=== PATIENT | male | born 1965 | race Caucasian/White ===

== ENCOUNTER 2018-03-12 16:56 | Inpatient (IN) ==
[2018-03-13] MEDS ORDERED: Dextrose 50% in Water 50 ML Vial IV.PUSH PRN (02:03)
--- NOTE | 2018-03-13 04:10 | P.HPIM ---
History of Present Illness Service: [facility] . Primary Care Physician: No Primary Care Physician Chief Complaint: Shortness of breath History of Present Illness: Mr. López is a 52-year-old male with a history of congestive heart failure, diabetes mellitus, hypertension, and pancreatitis who presented to the emergency room in [place] for evaluation of shortness of breath and lower extremity swelling. He also complained of chest pain. The patient was found to have congestive heart failure on chest x-ray with a BNP of 1700 and troponin I elevation of 0 of 0.48 and was admitted to [facility] for further evaluation. The patient is seen on the nursing unit. He reports a 3-4-day history of shortness of breath accompanied by chest pressure. He denies diaphoresis, nausea, palpitations, or radiating chest discomfort. He reports worsening of chest discomfort with cough. He has a congested cough noted during examination. He reports feeling extremely short of breath. He states the shortness of breath was relieved initially with IV Lasix but he feels that he is starting to get some increase in his breathing difficulty. Inpatient Certification: I certify that the inpatient services were ordered in accordance with Medicare regulations governing the order. This includes certification that hospital inpatient services are reasonable and necessary and in the case of services not specified as inpatient-only under 42 CFR 419.22(n), that they are appropriately provided as inpatient services in accordance to with the 2-midnight benchmark under 43 CFR 412.3(e) Estimated Total Length of Stay (Days): 3 Plans for Post Hospital Care: Home Review of Systems All other systems reviewed negative except as stated in HPI [facility] - History History Provided By: Patient - Medical History Medical History: Medical History (Last Reviewed 03/13/18 @ 05:17 by BRIAN Boykin) CHF (congestive heart failure) Diabetes Hypertension Pancreatitis - Surgical History Surgical History: Surgical History (Last Updated 03/13/18 @ 05:17 by BRIAN Boykin) History of ankle surgery History of cholecystectomy History of spinal fusion - Family History Family History: Family History (Last Updated 03/13/18 @ 05:17 by BRIAN Boykin) Father Family history of myocardial infarction - Social History I have reviewed the patient's Social History: Yes - Tobacco History Second Hand Smoke Exposure: Yes Tobacco Use In Past 30 Days: Yes Smoking Status: Current every day smoker Tobacco Type: Cigarettes - Alcohol History How Often Do You Have a Drink Containing Alcohol: Never - Substance Use History Substance History: No History of Abuse Medications and Allergies Active Medications: Active Medications Albuterol (Duoneb Neb (Prn)) 1 ampul NEB Q2HR NEB PRN PRN Reason: SHORTNESS OF BREATH/WHEEZING Aspirin (Aspirin Chew) 81 mg PO DAILY LISA Dextrose (D50w Vial) 50 ml IV.PUSH UNSCH PRN PRN Reason: PER HYPOGLYCEMIA PROTOCOL Duloxetine HCl (Cymbalta) 30 mg PO DAILY LISA Furosemide (Lasix Inj) 40 mg IV.PUSH TID LISA Glucagon (Glucagon Inj) 1 mg OTHER PRN PRN PRN Reason: for Hypoglycemia Protocol Insulin Aspart (Novolog Insulin Correctional Sugar Inj) 0 unit SQ ACHS LISA; Protocol Allergies Allergy/AdvReac Type Severity Reaction Status Date / Time morphine AdvReac Vomiting Verified 03/12/18 17:06 Home Medications Medication Instructions Recorded Confirmed Type duloxetine 30 mg PO DAILY 03/12/18 03/13/18 History furosemide 40 mg PO DAILY 03/12/18 03/13/18 History linaclotide [Linzess] 145 mcg PO DAILY 03/12/18 03/13/18 History lisinopril 20 mg PO DAILY 03/12/18 03/13/18 History Exam Vital signs: Vital Signs 03/13/18 01:00 Temperature 97.4 F L Pulse Rate 115 H Respiratory Rate 20 Blood Pressure 127/90 Pulse Oximetry 95 Intake & Output 03/12/18 03/12/18 03/13/18 06:59 18:59 06:59 Weight 73.4 kg Other: Weight On Admission 73.4 kg Narrative: GENERAL: This is a well-nourished, well-developed patient, in no apparent distress. SKIN: Darkly discolored lower extremities from tirado down consistent with venous vascular disease. Cool and dry. HEAD: Atraumatic. Normocephalic. EYES: No scleral icterus. No injection or drainage. ENT: Nose without bleeding, purulent drainage. NECK: Trachea midline. No JVD. CARDIOVASCULAR: Regular rate and rhythm without murmurs, gallops. RESPIRATORY: Inspiratory and expiratory rhonchi, bibasilar rales. GASTROINTESTINAL: Abdomen soft, non-tender, nondistended. No guarding. MUSCULOSKELETAL: Extremities without clubbing, cyanosis. No calf tenderness. 2 + pitting edema from just below knees to feet. NEUROLOGICAL: Awake and alert. Motor and sensory grossly within normal limits. Normal speech. . Caprini VTE Risk Assessment Caprini VTE Risk Assessment: Moderate/High Risk (score >= 2) Caprini Risk Assessment Model: Point Value = 1 Point Value = 2 Point Value = 3 Point Value = 5 Age 41-60 Minor surgery BMI > 25 kg/m2 Swollen legs Varicose veins or History of unexplained or recurrent spontaneous Oral contraceptives or hormone replacement Sepsis (< 1 month) Serious lung disease, including pneumonia (< 1 month) Abnormal pulmonary function Acute myocardial infarction Congestive heart failure (< 1 month) History of inflammatory bowel disease Medical patient at bed rest Age 61-74 Arthroscopic surgery Major open surgery (> 45 min) Laparoscopic surgery (> 45 min) Malignancy Confined to bed (> 72 hours) Immobilizing plaster cast Central venous access Age >= 75 History of VTE Family history of VTE Factor V Leiden Prothrombin [id number] Lupus anticoagulant Anticardiolipin antibodies Elevated serum homocysteine Heparin-induced thrombocytopenia Other congenital or acquired thrombophilia Stroke (< 1 month) Elective arthroplasty Hip, pelvis, or leg fracture Acute spinal cord injury (< 1 month) Prophylaxis Regimen: Total Risk Factor Score Risk Level Prophylaxis Regimen 0-1 Low Early ambulation 2 Moderate Order ONE of the following: *Sequential Compression Device (SCD) *Heparin 5000 units SQ BID 3-4 Higher Order ONE of the following medications: *Heparin 5000 units SQ TID *Enoxaparin/Lovenox 40 mg SQ daily (WT < 150 kg, CrCl > 30 mL/min) *Enoxaparin/Lovenox 30 mg SQ daily (WT < 150 kg, CrCl > 10-29 mL/min) *Enoxaparin/Lovenox 30 mg SQ BID (WT < 150 kg, CrCl > 30 mL/min) AND/OR *Sequential Compression Device (SCD) 5 or more Highest Order ONE of the following medications: *Heparin 5000 units SQ TID (Preferred with Epidurals) *Enoxaparin/Lovenox 40 mg SQ daily (WT < 150 kg, CrCl > 30 mL/min) *Enoxaparin/Lovenox 30 mg SQ daily (WT < 150 kg, CrCl > 10-29 mL/min) *Enoxaparin/Lovenox 30 mg SQ BID (WT < 150 kg, CrCl > 30 mL/min) AND *Sequential Compression Device (SCD) Assessment and Plan - Plan Mr. Lpóez is a 52-year-old male with a history of congestive heart failure, diabetes mellitus, hypertension, and pancreatitis who presented to the emergency room in [place] for evaluation of shortness of breath and lower extremity swelling. He also complained of chest pain. The patient was found to have congestive heart failure on chest x-ray with a BNP of 1700 and troponin I elevation of 0.48 and was admitted to [facility] for further evaluation. Acute congestive heart failure -Initial troponin elevation of 0.48 -the next 2 readings were flat -Lasix 40 mg IV 3 times daily -Monitor intake and output -Consult to cardiology-appreciate assistance -monitor strict intake and output -fluid restriction -2 L every 24 hours -2D echocardiogram to evaluate cardiac structure and function Suspect undiagnosed COPD secondary to long history of tobacco abuse -Advised to stop smoking -Duo nebulizers every 2 hours as needed shortness of breath/wheezing -Monitor pulse oximetry -Supplemental oxygen as needed Type 2 Diabetes Mellitus - Accu-Cheks before meals and at bedtime with low-dose NovoLog sliding scale coverage - PRN Hypoglycemia protocol - Monitor trends and blood glucose readings and adjust treatments as indicated Restart home medications when medication reconciliation is completed DVT prophylaxis -Heparin 5000 units subcu every 8 hours Discussed Condition With: Patient, RN, and Dr. Tran . H&P: Quality - VTE Deep Vein Thrombosis/Pulmonary Embolism Present on Admission: No
[2018-03-13] MEDS: Heparin - SQ 10,000 UNITS/ML Vial SQ SCH ×3 (06:06→21:00)
[2018-03-13 08:53] LABS: Anion Gap 7 meq/L (5-15); Blood Urea Nitrogen 17 mg/dL (7-18); Calcium 8.9 mg/dL (8.5-10.1); Carbon Dioxide 25.6 meq/L (21.0-32.0); Chloride 101 meq/L (98-107); Glomerular Filtration Rate Greater Than 89 mL/min (>89); Glucose,Random 395 mg/dL (74-106); Magnesium 1.6 mg/dL (1.5-2.5); Sodium 134 meq/L (136-145)
[2018-03-13] MEDS: Insulin NovoLOG Aspart Correctional Sugar Inj SQ SCH ×4 (08:53→20:56)
[2018-03-13 08:56] LABS: Troponin I 0.52 ng/mL (0.02-0.05)
[2018-03-13] MEDS ORDERED: Acetaminophen 325 MG Tablet PO PRN (09:26)
--- NOTE | 2018-03-13 09:30 | P.PN ---
Subjective Interval history: Follow-up acute systolic CHF of unknown type March 13, 2018-patient seen and examined, still complains of shortness of breath, denies any heart palpitation. Physical Exam Vital signs: Vital Signs 03/13/18 01:00 03/13/18 01:30 03/13/18 04:00 Temperature 97.4 F L 96.7 F L Pulse Rate 115 H 111 H 110 H Respiratory Rate 20 20 Blood Pressure 127/90 124/84 Pulse Oximetry 95 94 L 03/13/18 04:29 Temperature Pulse Rate 111 H Respiratory Rate 27 H Blood Pressure Pulse Oximetry Intake & Output 03/12/18 03/13/18 03/13/18 18:59 06:59 18:59 Intake Total 200 / 200 Output Total 0 / 0 Balance 200 / 200 Weight 73.1 kg Intake: Oral 200 / 200 Output: Urine 0 / 0 Other: # Voids 0 # Bowel Movements 0 Weight On Admission 73.4 kg Narrative: GENERAL: This is a well-nourished, well-developed patient, in no apparent distress. SKIN: Darkly discolored lower extremities from tirado down consistent with venous vascular disease. Cool and dry. HEAD: Atraumatic. Normocephalic. EYES: No scleral icterus. No injection or drainage. ENT: Nose without bleeding, purulent drainage. NECK: Trachea midline. No JVD. CARDIOVASCULAR: Regular rate and rhythm without murmurs, gallops. RESPIRATORY: Inspiratory and expiratory rhonchi, bibasilar rales. GASTROINTESTINAL: Abdomen soft, non-tender, nondistended. No guarding. MUSCULOSKELETAL: Extremities without clubbing, cyanosis. No calf tenderness. 2 + pitting edema from just below knees to feet. NEUROLOGICAL: Awake and alert. Motor and sensory grossly within normal limits. Normal speech. . Results - Labs CBC & Chem 7: 03/13/18 07:57 Laboratory Results - last 24 hr 03/13/18 03/13/18 07:57 08:04 Sodium 134 L Potassium 4.0 Chloride 101 Carbon Dioxide 25.6 Anion Gap 7 BUN 17 Creatinine 0.84 Estimated GFR Greater than 89 POC Glucose 419 H Random Glucose 395 H Calcium 8.9 Magnesium 1.6 Troponin I 0.52 H - Procedures None Assessment and Plan - Plan 52-year-old man with Acute congestive heart failure -Initial troponin elevation of 0.48 -the next 2 readings were flat -Lasix 40 mg IV 3 times daily -Monitor intake and output -Consult to cardiology-appreciate assistance -2D echocardiogram to evaluate cardiac structure and function -Resume GIGI inhibitor Suspect undiagnosed COPD secondary to long history of tobacco abuse -Tobacco cessation advised -Duo nebulizers every 2 hours as needed shortness of breath/wheezing -Monitor pulse oximetry -Supplemental oxygen as needed Type 2 Diabetes Mellitus - Accu-Cheks before meals and at bedtime with low-dose NovoLog sliding scale coverage - PRN Hypoglycemia protocol - Monitor trends and blood glucose readings and adjust treatments as indicated Restart home medications when medication reconciliation is completed DVT prophylaxis -Heparin 5000 units subcu every 8 hours
--- NOTE | 2018-03-13 13:18 | ECHRPT ---
Indication: cva/tia CONCLUSIONS Severely dilated left ventricle. The left ventricular systolic function is severely reduced with an estimated ejection fraction less than 20%. The right ventricular systoilc function is moderately decreased. Mild mitral valve regurgitation. There is mild tricuspid valve regurgitation. There is estimated moderate pulmonary hypertension present (range 50-60 mmHg). Large bilateral pleural effusions. BP: / HR: Rhythm: MEASUREMENTS (Male / Female) Normal Values Technical Quality: 2D ECHO LV Diastolic Diameter PLAX 6.3 cm 4.2 - 5.9 / 3.9 - 5.3 cm LV Systolic Diameter PLAX 5.8 cm IVS Diastolic Thickness 0.9 cm 0.6 - 1.0 / 0.6 - 0.9 cm LVPW Diastolic Thickness 0.9 cm 0.6 - 1.0 / 0.6 - 0.9 cm LV Relative Wall Thickness 0.3 RV Internal Dim ED PLAX 3.5 cm LVOT Diameter 1.5 cm Aortic Root Diameter 2.3 cm LA Systolic Diameter LX 4.6 cm 3.0 - 4.0 / 2.7 - 3.8 cm LV Ejection Fraction MOD BP 29.1 % >= 55 % LV Ejection Fraction MOD 4C 32.8 % LV Ejection Fraction 4C AL 34.8 % LV Ejection Fraction MOD 2C 20.2 % LV Ejection Fraction 2C AL 19.7 % M-MODE Aortic Root Diameter MM 3.0 cm LA Systolic Diameter MM 5.6 cm LA Ao Ratio MM 1.9 AV Cusp Separation MM 1.0 cm DOPPLER AV Peak Velocity 103.0 cm/s AV Peak Gradient 4.2 mmHg LVOT Peak Velocity 68.1 cm/s LVOT Peak Gradient 1.9 mmHg AV Area Cont Eq pk 1.2 cm MV Peak Velocity 153.0 cm/s MV Peak Gradient 9.4 mmHg MV Mean Velocity 82.2 cm/s MV Mean Gradient 4.0 mmHg Mitral E Point Velocity 99.2 cm/s LV E' Lateral Velocity 6.0 cm/s Mitral E to LV E' Lateral Ratio 16.5 LV E' Septal Velocity 3.4 cm/s Mitral E to LV E' Septal Ratio 28.9 TR Peak Velocity 351.0 cm/s TR Peak Gradient 49.3 mmHg Right Atrial Pressure 10.0 mmHg Pulmonary Artery Systolic Pressu 59.3 mmHg Right Ventricular Systolic Press 59.3 mmHg PV Peak Velocity 77.6 cm/s PV Peak Gradient 2.4 mmHg FINDINGS LEFT VENTRICLE Severely dilated left ventricle. Wall thickness is normal. The left ventricular systolic function is severely reduced with an estimated ejection fraction less than 20%. RIGHT VENTRICLE The right ventricular size is normal. The right ventricular systoilc function is moderately decreased. LEFT ATRIUM The left atrial size is mildly dilated. RIGHT ATRIUM The right atrial size is mildly dilated. ATRIAL SEPTUM Normal atrial septal thickness AORTA The aortic root and proximal ascending aorta are normal in size on limited imaging. MITRAL VALVE Structurally normal mitral valve. Mild mitral valve regurgitation. No mitral valve stenosis. AORTIC VALVE Cannot rule out a bicuspid aortic valve or trileaflet valve with partially fused commissure. No aortic valve regurgitation. No aortic valve stenosis. TRICUSPID VALVE Structurally normal tricuspid valve. There is mild tricuspid valve regurgitation. No tricuspid valve stenosis. There is estimated moderate pulmonary hypertension present (range 50-60 mmHg). PULMONARY VALVE No pulmonary valve regurgitation or stenosis. VESSELS The inferior vena cava is normal in size. PERICARDIUM Large bilateral pleural effusions Fish Rg DO (Electronically Signed) Final Date:13 March 2018 13:17
--- NOTE | 2018-03-13 15:18 | P.CONCA ---
History of Present Illness Service: cardiology Consult date: 03/13/18 Requesting Physician: Marcus Sosa Reason for Consult: chf Primary Care Provider: No Primary Care Physician Chief Complaint: Shortness of breath History of Present Illness: 82-year-old gentleman with a history of CHF, DM, HTN, pancreatitis who presented to [place] [facility] with dyspnea and lower extremity edema. He also complained of chest pain. Chest x-ray revealed large left-sided pleural effusion and mild pulmonary vascular congestion. BNP elevated 1700 and troponin I elevated 0.48, 0.52, 0.54. EKG reveals sinus tachycardia 115 bpm, LAE, anterior septal [place] with nonspecific T wave changes. No prior EKG was available for comparison. Echocardiogram completed 03/13/18 revealed severely dilated LV with reduced systolic function, EF less than 20%, mild MR, mild TR, estimated PAP 59 mmHg, large bilateral pleural effusions. Patient was started on furosemide 40 mg IV 3 times daily with reasonable urine output however continues to be dyspneic. I/O and daily weight has been not accurately monitored. Creatinine/BUN remains unchanged and normal. Patient currently has continued dyspnea and mild orthopnea with lower extremity edema. No other complaints. Denies any chest pain. No palpitations or syncope. Review of Systems All other systems reviewed negative except as stated in HPI [facility] - History History Provided By: Patient - Medical History Medical History: Medical History (Last Reviewed 03/13/18 @ 05:17 by BRIAN Bokyin) CHF (congestive heart failure) Diabetes Hypertension Pancreatitis - Surgical History Surgical History: Surgical History (Last Updated 03/13/18 @ 05:17 by BRIAN Boykin) History of ankle surgery History of cholecystectomy History of spinal fusion - Family History Family History: Family History (Last Updated 03/13/18 @ 05:17 by BRIAN Boykin) Father Family history of myocardial infarction - Tobacco History Second Hand Smoke Exposure: Yes Tobacco Use In Past 30 Days: Yes Smoking Status: Current every day smoker Tobacco Type: Cigarettes - Alcohol History How Often Do You Have a Drink Containing Alcohol: Never - Substance Use History Substance History: No History of Abuse - Immunization History Tetanus Immunization: Unsure Medications and Allergies Active Medications: Active Medications Acetaminophen (Tylenol) 650 mg PO Q4H PRN PRN Reason: Temp > 100.4 Al Hydroxide/Mg Hydroxide (Milk Of Magnesia Liq) 30 ml PO DAILY PRN PRN Reason: SEVERE CONSITIPATION Albuterol (Duoneb Neb (Prn)) 1 ampul NEB Q2HR NEB PRN PRN Reason: SHORTNESS OF BREATH/WHEEZING Last Admin: 03/13/18 12:37 Dose: 1 ampul Aspirin (Aspirin Chew) 81 mg PO DAILY [facility] Last Admin: 03/13/18 08:52 Dose: 81 mg Carvedilol (Coreg) 3.125 mg PO BID [facility] Dextrose (D50w Vial) 50 ml IV.PUSH UNSCH PRN PRN Reason: PER HYPOGLYCEMIA PROTOCOL Duloxetine HCl (Cymbalta) 30 mg PO DAILY [facility] Last Admin: 03/13/18 08:53 Dose: 30 mg Furosemide (Lasix Inj) 40 mg IV.PUSH TID [facility] Last Admin: 03/13/18 12:26 Dose: 40 mg Glucagon (Glucagon Inj) 1 mg OTHER PRN PRN PRN Reason: for Hypoglycemia Protocol Heparin Sodium (Porcine) (Heparin Inj) 5,000 units SQ Q8HR [facility] Last Admin: 03/13/18 06:06 Dose: Not Given Insulin Aspart (Novolog Insulin Correctional Sugar Inj) 0 unit SQ ACHS [facility]; Protocol Last Admin: 03/13/18 12:27 Dose: 3 unit Lisinopril (Prinivil) 10 mg PO DAILY [facility] Metolazone (Zaroxolyn) 5 mg PO DAILY [facility] Ondansetron HCl (Zofran Inj) 4 mg IV.PUSH Q6H PRN PRN Reason: NAUSEA Potassium Chloride (K-Dur) 20 meq PO BID [facility] Spironolactone (Aldactone) 25 mg PO DAILY [facility] Allergies Allergy/AdvReac Type Severity Reaction Status Date / Time morphine AdvReac Vomiting Verified 03/12/18 17:06 Home Medications Medication Instructions Recorded Confirmed Type duloxetine 30 mg PO DAILY 03/12/18 03/13/18 History furosemide 40 mg PO DAILY 03/12/18 03/13/18 History linaclotide [Linzess] 145 mcg PO DAILY 03/12/18 03/13/18 History lisinopril 20 mg PO DAILY 03/12/18 03/13/18 History Exam Vital signs: Vital Signs 03/13/18 01:00 03/13/18 01:30 03/13/18 04:00 Temperature 97.4 F L 96.7 F L Pulse Rate 115 H 111 H 110 H Respiratory Rate 20 20 Blood Pressure 127/90 124/84 Pulse Oximetry 95 94 L 03/13/18 04:29 03/13/18 08:00 03/13/18 12:00 Temperature 98.0 F 97.4 F L Pulse Rate 111 H 118 H 120 H Respiratory Rate 27 H 20 20 Blood Pressure 133/87 121/93 H Pulse Oximetry 96 95 03/13/18 12:35 Temperature Pulse Rate 120 H Respiratory Rate 20 Blood Pressure Pulse Oximetry Intake & Output 03/12/18 03/13/18 03/13/18 18:59 06:59 18:59 Intake Total 200 / 200 Output Total 0 / 0 Balance 200 / 200 Weight 73.1 kg Intake: Oral 200 / 200 Output: Urine 0 / 0 Other: # Voids 0 Date of Last Bowel Movement 03/12/18 # Bowel Movements 0 Weight On Admission 73.4 kg Narrative: GENERAL: Speaking full sentences. No acute distress. SKIN: Warm and dry. HEAD: Atraumatic. Normocephalic. NECK: Trachea midline. No JVD. CARDIOVASCULAR: Tachycardic with regular rhythm, no significant murmurs. RESPIRATORY: No accessory muscle use. Decreased breath sounds at the bases. Faint rales. GASTROINTESTINAL: Abdomen soft, non-tender, nondistended. MUSCULOSKELETAL: Extremities without clubbing, cyanosis, or edema. No obvious deformities. NEUROLOGICAL: Awake and alert. No obvious cranial nerve deficits. Motor grossly within normal limits. Five out of 5 muscle strength in the arms and legs. Normal speech. PSYCHIATRIC: Appropriate mood and affect; insight and judgment normal. Results 03/13/18 07:57 Cardiac Enzymes 03/13/18 03/13/18 Range/Units 07:57 12:31 Troponin I 0.52 H 0.54 H (0.02-0.05) ng/mL Comprehensive Metabolic Panel 03/13/18 Range/Units 07:57 Sodium 134 L (136-145) meq/L Potassium 4.0 (3.5-5.1) meq/L Chloride 101 (98-107) meq/L Carbon Dioxide 25.6 (21.0-32.0) meq/L BUN 17 (7-18) mg/dL Creatinine 0.84 (0.60-1.30) mg/dL Calcium 8.9 (8.5-10.1) mg/dL Intake and Output 03/13/18 03/13/18 03/13/18 06:59 14:59 22:59 Intake Total 200 / 200 Output Total 0 / 0 Balance 200 / 200 Intake: Oral 200 / 200 Output: Urine 0 / 0 Other: # Voids 0 Date of Last Bowel Movement 03/12/18 # Bowel Movements 0 Weight 73.1 kg Weight On Admission 73.4 kg Assessment and Plan - Plan Assessment: Acute decompensated congestive heart failure, systolic Severe cardiomyopathy, LVEF< 20% Atypical chest pain with mild flat troponin elevation in the setting of ADHF. Hypertension, currently normotensive Diabetes Pulmonary hypertension with PAP 59 mmHg by echocardiogram, suspect pulmonary venous hypertension in the setting of ADHF Recommendations: -Continue furosemide 40 mg 3 times daily -Start metolazone 5 mg daily -Start spironolactone 25 mg daily with holding parameters -Start carvedilol 3.125 mg twice daily with holding parameters -Reduce lisinopril to 10 mg daily with holding parameters -Monitor CR/K+ on current regimen. Maintain K+ greater than 4.0 -Monitor on telemetry -He will require an evaluation for coronary ischemia with Lexiscan stress test versus coronary angiography prior to discharge. May consider Lexiscan tomorrow if orthopnea is improved. -Repeat chest x-ray tomorrow and if continued large bilateral pleural effusions , would consider thoracentesis. -We will require outpatient up titration of cardiac medications for OMT of underlying cardiomyopathy as well as repeat echocardiogram in 3-4 months for consideration of AICD placement for primary prevention of SCD if EF remains less than 35%. -May benefit from LifeVest placement prior to discharge. Consult case management to assist. We will continue to follow with you.
[2018-03-13] MEDS: MethylPREDNISolone Sod Succinate Inj 40 MG/ML Vial IV.PUSH SCH ×2 (15:50→21:00)
--- NOTE | 2018-03-13 16:25 | CT ---
EXAM DATE: 03/13/2018 4:18 PM EST AGE/SEX: 52 years / Male INDICATIONS: Dyspnea and chest pain. CLINICAL DATA: This is the patient's initial encounter. Patient reports that signs and symptoms have been present for 1 day and indicates a pain score of 5/10. MEDICAL/SURGICAL HISTORY: Congestive heart failure. Hypertension. Pancreatitis. Diabetes Cholec ystectomy. Cervical spine fusion. RADIATION DOSE: 10.59 CTDI (mGy) COMPARISON: [facility], CHEST 2V PA&LAT, 03/12/2018. . TECHNIQUE: Volumetric scanning was performed using a multi-row detector CT scanner during bolus infu zina of 75 ml Omnipaque 350 (iohexol) nonionic water-soluble contrast as a single exam dose. The erika a was post processed with a variety of visualization algorithms including full volume maximum intensi ty projection and sliding thin slab reformation. Using automated exposure control and adjustment of t he mA and/or kV according to patient size, radiation dose was kept as low as reasonably achievable to obtain optimal diagnostic quality images. DICOM format image data is available electronically for r eview and comparison. FINDINGS: Pulmonary Arteries: No filling defects are seen in the pulmonary arteries out to the subsegmental ve ssels. The left and right pulmonary arteries are normal in diameter. Lung: There is underlying emphysema. Mild hazy airspace disease is noted in the dependent portions o f both lung bases. Effusion: There are bilateral [id number] pleural effusions left greater than right. These ext end to the lung apices.. Mediastinum: No evidence of mediastinal or hilar adenopathy. There is mild cardiomegaly. Other: The axilla is unremarkable. CONCLUSION: 1. No evidence of pulmonary emboli. 2. Cardiomegaly, bilateral pleural effusions and mild hazy airspace opacity in the dependent portion s along bases. The findings most characteristic of mild congestive heart failure. Electronically signed by: Bautista Shabazz MD Board Certified Radiologist 03/13/2018 4:23 PM EST
[2018-03-13] MEDS: metOLazone 5 MG Tablet PO SCH (17:38)
[2018-03-13] MEDS: Spironolactone 25 MG Tablet PO SCH (17:38)
[2018-03-13] MEDS: Budesonide-Formoterol 160/4.5 MCG 6 GM Inhaler INH SCH (20:57)
[2018-03-14] MEDS: MethylPREDNISolone Sod Succinate Inj 40 MG/ML Vial IV.PUSH SCH (06:24)
[2018-03-14] MEDS: Heparin - SQ 10,000 UNITS/ML Vial SQ SCH (06:24)
[2018-03-14 07:04] LABS: Albumin 2.8 g/dL (3.4-5.0); Anion Gap 10 meq/L (5-15); Aspartate Aminotransferase 20 U/L (15-37); Blood Urea Nitrogen 22 mg/dL (7-18); Calcium 9.7 mg/dL (8.5-10.1); Chloride 95 meq/L (98-107); Glomerular Filtration Rate Greater Than 89 mL/min (>89); Glucose,Random 383 mg/dL (74-106); Potassium 3.8 meq/L (3.5-5.1); Sodium 134 meq/L (136-145)
[2018-03-14 07:06] LABS: Alanine Aminotransferase 31 U/L (12-78)
[2018-03-14 07:08] LABS: Alkaline Phosphatase 99 U/L (45-117)
--- NOTE | 2018-03-14 08:48 | P.PNCA ---
Subjective Interval history: Patient seen and examined. He is emotional and teary eyed and wants to leave. He 'll stay. Doesn't like the food. No chest pain. Still with some dyspnea but improving. LE edema improving. I/O net -2200cc if accurate. Weight is down. CTA chest neg for PE 03/13. tele - ST 100s-130s. I suspect higher HRs with B2 agonists. Medications and Allergies Active Medications: Active Medications Acetaminophen (Tylenol) 650 mg PO Q4H PRN PRN Reason: Temp > 100.4 Al Hydroxide/Mg Hydroxide (Milk Of Karin Gage) 30 ml PO DAILY PRN PRN Reason: SEVERE CONSITIPATION Albuterol (Duoneb Neb (Prn)) 1 ampul NEB Q2HR NEB PRN PRN Reason: SHORTNESS OF BREATH/WHEEZING Last Admin: 03/13/18 20:34 Dose: 1 ampul Aspirin (Aspirin Chew) 81 mg PO DAILY [facility] Last Admin: 03/13/18 08:52 Dose: 81 mg Budesonide/Formoterol Fumarate (Symbicort 160/4.5 Mcg Inh) 2 puff INH BID [facility] Last Admin: 03/13/18 20:57 Dose: Not Given Carvedilol (Coreg) 12.5 mg PO BID [facility] Dextrose (D50w Vial) 50 ml IV.PUSH UNSCH PRN PRN Reason: PER HYPOGLYCEMIA PROTOCOL Duloxetine HCl (Cymbalta) 30 mg PO DAILY [facility] Last Admin: 03/13/18 08:53 Dose: 30 mg Furosemide (Lasix Inj) 40 mg IV.PUSH TID [facility] Last Admin: 03/13/18 17:39 Dose: 40 mg Glucagon (Glucagon Inj) 1 mg OTHER PRN PRN PRN Reason: for Hypoglycemia Protocol Heparin Sodium (Porcine) (Heparin Inj) 5,000 units SQ Q8HR [facility] Last Admin: 03/14/18 06:24 Dose: Not Given Insulin Aspart (Novolog Insulin Correctional Sugar Inj) 0 unit SQ [facility]; Protocol Last Admin: 03/13/18 20:56 Dose: 9 unit Lisinopril (Prinivil) 10 mg PO DAILY [facility] Methylprednisolone Sodium Succinate (Solumedrol Inj) 40 mg IV.PUSH Q8HR [facility] Last Admin: 03/14/18 06:24 Dose: 40 mg Metolazone (Zaroxolyn) 5 mg PO DAILY [facility] Last Admin: 03/13/18 17:38 Dose: 5 mg Ondansetron HCl (Zofran Inj) 4 mg IV.PUSH Q6H PRN PRN Reason: NAUSEA Potassium Chloride (K-Dur) 20 meq PO TID [facility] Spironolactone (Aldactone) 25 mg PO DAILY [facility] Last Admin: 03/13/18 17:38 Dose: 25 mg Tiotropium Adah (Spiriva 18 Mcg Inh) 18 mcg INH DAILY [facility] Allergies Allergy/AdvReac Type Severity Reaction Status Date / Time morphine AdvReac Vomiting Verified 03/12/18 17:06 Home Medications Medication Instructions Recorded Confirmed Type duloxetine 30 mg PO DAILY 03/12/18 03/13/18 History furosemide 40 mg PO DAILY 03/12/18 03/13/18 History linaclotide [Linzess] 145 mcg PO DAILY 03/12/18 03/13/18 History lisinopril 20 mg PO DAILY 03/12/18 03/13/18 History Physical Exam Vital signs: Vital Signs 03/13/18 12:00 03/13/18 12:35 03/13/18 16:47 Temperature 97.4 F L Pulse Rate 120 H 120 H 117 H Respiratory Rate 20 20 20 Blood Pressure 121/93 H Pulse Oximetry 95 03/13/18 20:00 03/13/18 20:35 03/14/18 00:00 Temperature 98.5 F 98.3 F Pulse Rate 114 H 118 H 106 H Respiratory Rate 20 18 18 Blood Pressure 120/72 123/82 Pulse Oximetry 90 L 91 L Intake & Output 03/13/18 03/14/18 03/14/18 18:59 06:59 18:59 Intake Total 500 / 500 240 / 240 Output Total 400 / 400 2875 / 2875 Balance 100 / 100 -2635 / -2635 Weight 72.8 kg Intake: Oral 500 / 500 240 / 240 Output: Urine 400 / 400 2875 / 2875 Other: Date of Last Bowel Movement 03/12/18 03/12/18 # Bowel Movements 3 Narrative: GENERAL: Speaking full sentences. No acute distress. SKIN: Warm and dry. HEAD: Atraumatic. Normocephalic. NECK: Trachea midline. No JVD. CARDIOVASCULAR: Tachycardic with regular rhythm, no significant murmurs. RESPIRATORY: No accessory muscle use. Decreased breath sounds at the bases. No wheeze, rales or rhonci. GASTROINTESTINAL: Abdomen soft, non-tender, nondistended. MUSCULOSKELETAL: Extremities without clubbing, cyanosis, or edema. No obvious deformities. NEUROLOGICAL: Awake and alert. No obvious cranial nerve deficits. Motor grossly within normal limits. Five out of 5 muscle strength in the arms and legs. Normal speech. PSYCHIATRIC: Appropriate mood and affect; insight and judgment normal. Results 03/14/18 05:51 Cardiac Enzymes 03/13/18 03/13/18 03/14/18 Range/Units 07:57 12:31 05:51 AST 20 (15-37) U/L Troponin I 0.52 H 0.54 H (0.02-0.05) ng/mL Comprehensive Metabolic Panel 03/13/18 03/14/18 Range/Units 07:57 05:51 Sodium 134 L 134 L (136-145) meq/L Potassium 4.0 3.8 (3.5-5.1) meq/L Chloride 101 95 L (98-107) meq/L Carbon Dioxide 25.6 29.0 (21.0-32.0) meq/L BUN 17 22 H (7-18) mg/dL Creatinine 0.84 0.88 (0.60-1.30) mg/dL Calcium 8.9 9.7 D (8.5-10.1) mg/dL AST 20 (15-37) U/L ALT 31 (12-78) U/L Alkaline Phosphatase 99 (45-117) U/L Total Protein 7.0 (6.4-8.2) g/dL Albumin 2.8 L (3.4-5.0) g/dL Intake and Output 03/13/18 03/14/18 03/14/18 22:59 06:59 14:59 Intake Total 500 / 500 240 / 240 Output Total 400 / 400 2875 / 2875 Balance 100 / 100 -2635 / -2635 Intake: Oral 500 / 500 240 / 240 Output: Urine 400 / 400 2875 / 2875 Other: Date of Last Bowel Movement 03/12/18 # Bowel Movements 3 Weight 72.8 kg - Imaging and Cardiology Imaging: Impressions Chest CTA 03/13/18 00:00 CONCLUSION: 1. No evidence of pulmonary emboli. 2. Cardiomegaly, bilateral pleural effusions and mild hazy airspace opacity in the dependent portions along bases. The findings most characteristic of mild congestive heart failure. Assessment and Plan - Plan Assessment: Acute decompensated congestive heart failure, systolic Severe cardiomyopathy, LVEF< 20% Atypical chest pain with mild flat troponin elevation in the setting of ADHF. COPD with acute exacerbation Hypoxic respiratory failure Hypertension, currently normotensive Diabetes Pulmonary hypertension with PAP 59 mmHg by echocardiogram, suspect pulmonary venous hypertension in the setting of ADHF Recommendations: -Continue furosemide 40 mg 3 times daily -continue metolazone 5 mg daily -continue spironolactone 25 mg daily with holding parameters -Increase carvedilol to 12.5mg twice daily with holding parameters. He seems to be tolerating with wheezing resolved. -Continue reduced lisinopril to 10 mg daily with holding parameters -Monitor CR/K+ on current regimen. Maintain K+ greater than 4.0, will increase KCL to 20meq tid today -Monitor on telemetry -He will require an evaluation for coronary ischemia with Lexiscan stress test versus coronary angiography prior to discharge. Following d/w patient, Lexiscan today. -Repeat chest x-ray today and if continued large bilateral pleural effusions, may consider thoracentesis. -He will require outpatient up titration of cardiac medications for OMT of underlying cardiomyopathy as well as repeat echocardiogram in 3-4 months for consideration of AICD placement for primary prevention of SCD if EF remains less than 35%. -May benefit from LifeVest placement prior to discharge. Consult case management to assist. We will continue to follow with you.
[2018-03-14] MEDS: metOLazone 5 MG Tablet PO SCH (08:51)
[2018-03-14] MEDS: Lisinopril 10 MG Tablet PO SCH (08:52)
[2018-03-14] MEDS: Insulin NovoLOG Aspart Correctional Sugar Inj SQ SCH ×4 (08:52→21:50)
[2018-03-14] MEDS: Spironolactone 25 MG Tablet PO SCH (08:53)
[2018-03-14] MEDS: Budesonide-Formoterol 160/4.5 MCG 6 GM Inhaler INH SCH ×2 (08:54→21:55)
[2018-03-14] MEDS: Tiotropium Bromide 18 MCG/ACT Inhaler INH SCH (08:54)
[2018-03-14] MEDS ORDERED: dilTIAZem 60 MG Tablet PO SCH (09:00)
[2018-03-14] MEDS ORDERED: Lisinopril 20 MG Tablet PO SCH (09:00)
[2018-03-14] MEDS: Carvedilol 12.5 MG Tablet PO SCH ×2 (09:04→21:55)
--- NOTE | 2018-03-14 10:21 | XR ---
EXAM DATE: 03/14/2018 10:11 AM EST AGE/SEX: 52 years / Male INDICATIONS: . Short of breath, chest pain. CLINICAL DATA: This is the patient's subsequent encounter. Patient reports that signs and symptoms h ave been present for 1 week and indicates a pain score of 2/10. MEDICAL/SURGICAL HISTORY: Congestive heart failure. Hypertension. Diabetes mellitus type II. Pancreatitis. Cholecystectomy. Cervical spine fusion. COMPARISON: [facility], CHEST 2V PA&LAT, 03/12/2018. . FINDINGS: The heart is enlarged. Mild interstitial prominence is evident. There are new consolidative changes i n the left base. Mild degenerative changes about both shoulders. CONCLUSION: New consolidative changes left base with mild interstitial edema. Electronically signed by: Jai Huang MD Board Certified Radiologist 03/14/2018 10:20 AM EST
--- NOTE | 2018-03-14 11:21 | P.PN ---
Subjective Interval history: Follow-up acute systolic CHF March 13, 2018-patient seen and examined, still complains of shortness of breath, denies any heart palpitation. March 14, 2018-patient seen and examined, reports significant improvement of shortness of breath. Currently n.p.o. pending left heart catheterization. Labile blood glucose Physical Exam Vital signs: Vital Signs 03/13/18 12:00 03/13/18 12:35 03/13/18 16:47 Temperature 97.4 F L Pulse Rate 120 H 120 H 117 H Respiratory Rate 20 20 20 Blood Pressure 121/93 H Pulse Oximetry 95 03/13/18 20:00 03/13/18 20:35 03/14/18 00:00 Temperature 98.5 F 98.3 F Pulse Rate 114 H 118 H 106 H Respiratory Rate 20 18 18 Blood Pressure 120/72 123/82 Pulse Oximetry 90 L 91 L 03/14/18 08:00 Temperature 97.6 F Pulse Rate 104 H Respiratory Rate 18 Blood Pressure 116/84 Pulse Oximetry 97 Intake & Output 03/13/18 03/14/18 03/14/18 18:59 06:59 18:59 Intake Total 500 / 500 240 / 240 Output Total 400 / 400 2875 / 2875 Balance 100 / 100 -2635 / -2635 Weight 72.8 kg Intake: Oral 500 / 500 240 / 240 Output: Urine 400 / 400 2875 / 2875 Other: Date of Last Bowel Movement 03/12/18 03/12/18 # Bowel Movements 3 Narrative: GENERAL: NAD SKIN: Warm and dry. HEAD: Atraumatic. Normocephalic. EYES: Pupils equal and round. No scleral icterus. No injection or drainage. ENT: No nasal bleeding or discharge. Mucous membranes pink and moist. NECK: Trachea midline. No JVD. CARDIOVASCULAR: Regular rate and rhythm. RESPIRATORY: No accessory muscle use. Clear to auscultation. Breath sounds equal bilaterally. GASTROINTESTINAL: Abdomen soft, non-tender, nondistended. Hepatic and splenic margins not palpable. MUSCULOSKELETAL: Extremities without clubbing, cyanosis.+1 edema BLE. No obvious deformities. NEUROLOGICAL: Awake and alert. No obvious cranial nerve deficits. Motor grossly within normal limits. Five out of 5 muscle strength in the arms and legs. Normal speech. PSYCHIATRIC: Appropriate mood and affect; insight and judgment normal. Results - Labs CBC & Chem 7: 03/14/18 05:51 Laboratory Results - last 24 hr 03/13/18 03/13/18 03/13/18 12:05 12:31 17:18 Sodium Potassium Chloride Carbon Dioxide Anion Gap BUN Creatinine Estimated GFR POC Glucose 229 H 187 H Random Glucose Calcium Total Bilirubin AST ALT Alkaline Phosphatase Troponin I 0.54 H Total Protein Albumin 03/13/18 03/14/18 03/14/18 20:25 05:51 07:48 Sodium 134 L Potassium 3.8 Chloride 95 L Carbon Dioxide 29.0 Anion Gap 10 BUN 22 H Creatinine 0.88 Estimated GFR Greater than 89 POC Glucose 400 H 359 H Random Glucose 383 H Calcium 9.7 D Total Bilirubin 2.2 H AST 20 ALT 31 Alkaline Phosphatase 99 Troponin I Total Protein 7.0 Albumin 2.8 L - Imaging Impressions Chest CTA 03/13/18 00:00 CONCLUSION: 1. No evidence of pulmonary emboli. 2. Cardiomegaly, bilateral pleural effusions and mild hazy airspace opacity in the dependent portions along bases. The findings most characteristic of mild congestive heart failure. Chest X-Ray 03/14/18 00:00 CONCLUSION: New consolidative changes left base with mild interstitial edema. - Procedures None Assessment and Plan - Plan 52-year-old man with Acute systolic CHF -Lasix 40 mg IV 3 times daily -Monitor intake and output -Appreciate input from cardiology and plan for left heart catheterization today March 14, 2018 -2D echocardiogram with EF 20%, patient may benefit from LifeVest -Continue GIGI-I, Aldactone 25 mg daily, Zaroxolyn 5 mg daily -Strict I's and O's Suspect undiagnosed COPD secondary to long history of tobacco abuse -Tobacco cessation advised -Currently on Solu-Medrol 40 mg IV q. 3, will decrease to 20 mg every 12H and continue with Spiriva, Symbicort -Start prednisone 20 mg daily on March 15, 2018 -Duo nebulizers every 2 hours as needed shortness of breath/wheezing -Monitor pulse oximetry -Supplemental oxygen as needed Type 2 Diabetes Mellitus Labile blood glucose 2/2 Solu-Medrol therapy -Start Levemir 10 units at bedtime - Accu-Cheks before meals and at bedtime change to Medium-dose NovoLog sliding scale coverage -Check hemoglobin A1c Restart home medications when medication reconciliation is completed DVT prophylaxis -Heparin 5000 units subcu every 8 hours
[2018-03-14] MEDS ORDERED: Heparin/NS PF Inj 1,000 ML ONE (13:43)
[2018-03-14] MEDS ORDERED: fentaNYL Citrate Inj 100 MCG/2 ML Ampul ONE (13:44)
[2018-03-14] MEDS ORDERED: Heparin 10,000 UNITS/10 ML Vial (for IV use) ONE (13:44)
--- NOTE | 2018-03-14 14:34 | P.PCN ---
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 Fluoroscopy with interpretation 2. Coronary angiography 3. Percutaneous coronary intervention to the posterior descending coronary artery with drug-eluting stent Methods: Risks, benefits, and alternatives were discussed with the patient. Patient understood and consented to the procedure. Patient was brought into the cardiac catheterization lab and placed on the catheterization table. The patient's right wrist was prepped and draped in a sterile fashion. The right wrist was anesthetized with 1% lidocaine. Right wrist was cannulated and a 6 [place]i 11 cm sheath was placed without difficulty. 200 mcg of intra-arterial nitroglycerin was administered and 5000 units of intravenous heparin. Coronary angiography: The left main coronary artery was selectively engaged with a 5 [place] JL 3.5 Padma catheter. The right coronary circulation was selectively engaged with a 5 [place] JR 5 Padma catheter. 1. Left main coronary artery has minor luminal irregularities 2. Left anterior descending coronary artery is a large caliber size vessel with minor luminal irregularities in the mid segment. There is a diagonal branch with a 30/% stenosis proximally. There is a mid myocardial bridge in the left anterior descending coronary artery 3. Left circumflex coronary artery has minor luminal irregularities estimated 30 % and a ramus intermedius branch and obtuse marginal branch. 4. Right coronary is a dominant vessel giving rise to the posterior descending branch. The right coronary artery has moderate luminal irregularities. The posterior descending branch has a 90% tubular stenosis in the proximal segment. Percutaneous core intervention: Patient's cardiomyopathy is clearly nonischemic. Patient did have elevated cardiac biomarkers. We will proceed with percutaneous coronary intervention to the posterior descending branch although I do not expect this to significantly improve his ejection fraction, but hopefully avoid any future anginal symptoms. Angiomax was administered throughout the entire procedure to maintain appropriate anticoagulation. Right coronary artery was selectively engaged with a 6 [place] JR 5 guide catheter. A 0.014 inch 180 cm LetsgofordinnerumBioSTL run through wire was navigated down to the distal posterior descending branch without difficulty. A 2.25 x 12 mm Rx resolute Enrique stent was then advanced to the posterior descending branch and deployed. Repeat angiography showed no residual stenosis with DON-3 flow. Intracoronary 100 mcg of nitroglycerin was administered. Conclusions: 1. Nonischemic cardia myopathy 2. Successful percutaneous coronary intervention with drug-eluting stent to high-grade stenosis in the posterior descending coronary artery Plan: Guideline directed medical therapy. Sheath removed and Hemoband applied. Monitor for postprocedural complications. Aspirin, Effient, statin, beta-harvey, GIGI inhibitor. Consult for automatic external cardioverter defibrillator Follow-up transthoracic echocardiogram in 3 months
--- NOTE | 2018-03-14 14:37 | CATHPROC ---
[employer] HIS Report Study Information Study Number Admission Scheduled Start Study Start [id number] Mar 13 2018 1:00AM 03/14/2018 Mar 14 2018 1:32PM [place] [facility] Cardiac Catheterization Admit Source Facility Department Emergency department [facility] - Education Rep Physician and Clinical Staff Initial Barney Sánchez Indexer Juwan Hanna,RN Recorder Vesna Ash ,RT(R) Scrub Duane Umanzor,engagement specialist Performed Procedure Location (Site) Vessel Name Coronary Angiograms LCA Left Coronary Coronary Angiograms RCA Right Coronary Drug Eluting Inflatio RCA Dist Right Coronary L Heart Cath Wire insertion Radial (right) Radial Art. 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 Description Size Mfg Part Number Used/Scraped COPILOT VALVE, BLEEDBACK [id number] 14:12 [employer] Used CONTROL *[id number] TRANSDUCER, TRUWAVE [id number] 13:42 [employer] (PIROX) RIVERA * Used W/STOCKCOCK *[id number] [id number] *[id number] 534-518T *[id number] *[id number] [id number] *[id number] 13:42 [facility] BLANKET,WARM AIR CCL * Used *[id number] 13:42 [facility] PACK, CCL CUSTOM * Used *[id number] 13:42 [facility] SUPPORT, ARTERIAL ADULT [id number] *[id number] Used [id number] 14:20 [employer] STENT, 2.25 12MM MANUEL 2.25 12MM Used *[id number] 14:12 [employer] 30 PADMINI INDEFLATOR Used *[id number] BAND, RADIAL COMPRESSION TR [id number] 14:29 [employer] 24CM Used SHORT 24 *[id number] SHEATH, FR6 RADIAL PRELUDE 13:42 [employer] FR 6 [id number] Used EASE 11CM [id number] 13:42 [employer] WIRE, EXCHANGE 260CM 3MMJ 260CM Used *[id number] 13:42 [employer] MANIFOLD, 4 PORT * Used *[id number] 13:42 [employer] OMNIPAQUE, 350 MG, 150ML 150ML [id number] Used WIRE, RUNTHROUGH NS FLOPPY [id number] 14:12 [employer] 180CM Used .014 180CM *[id number] Equipment Model, Serial, Lot Number and Expiration Data Description Model Number Serial Number Lot Number Expiration Date STENT, 2.25 12MM MANUEL [id number] 01-26-2019 History: Current Medications Medication Dosage/Unit Route Frequency Last Date/Time Taken Beta Lois ASA History: Allergies Allergy Reaction morphine Vomiting History: Risk Factors Family History of Hypertension Dyslipidemia Previous DC Previous Heart Failure Premature CAD Yes Yes Yes No Yes Prior Valve Prior PCI Prior CABG Surgery No No No Cerebrovascular Peripheral Artery Chronic Lung On Dialysis Diabetes Diabetes Therapy Disease Disease Disease No No No Yes Yes Oral History: Symptoms/Diagnosis Selection Items Chest pain History: Other Disease Selection Items HTN History: Other Current Smoker Packs a Day Years Used Pack Years Yes 1 35 35 Labs Hgb (g/dl) Hct (%) WBC (l/cumm) Platelets (thousands) 11.60-17.00 35.00-51.00 4.00-11.00 150.00-450.00 16.2 48.2 8.2 171 Glucose (mg/dl) BUN (mg/dl) Creatinine (mg/dl) BUN:Creatinine (1:x) 74.00-106.00 7.00-18.00 0.50-1.30 10.00-20.00 359 22 0.8 27.5 Na (meq/l) K (meq/l) 136.00-145.00 3.50-5.10 134 3.8 INR (PTT:PT) 0.90-1.10 1.1 Troponin I (ng/ml) CPK-MB (ng/ML) 0.02-0.05 0.50-3.60 0.54 Not Drawn Medication Medication Total Dose (Bolus/Oral) Medication Total Dosage/Unit 1% XYLOCAINE 5 mL ANGIOMAX BOLUS 11 mL EFFIENT 60 mg FENTANYL 50 mcg HEPARIN 5000 units NTG (IC) 100 mcg VERSED 1 mg Medications (Bolus/Oral) Medication Time Given Dosage/Unit Administered By Reason 1% XYLOCAINE 03/14/2018 2:03:09 PM 5 mL Barney Nails 5 mL 1% XYLOCAINE given in lab by Barney Nails in Right Radial via Subcutaneous. Ordered by Barney Nails. HEPARIN 03/14/2018 2:04:51 PM 5000 units Juwan Hanna 5000 units HEPARIN given in lab by Juwan Hanna RN via Peripheral IV. Ordered by Barney Nails. VERSED 03/14/2018 2:08:00 PM 1 mg Juwan Hanna 1 mg VERSED given in lab by Juwan Hanna RN via Peripheral IV. Ordered by Barney Nails. FENTANYL 03/14/2018 2:08:00 PM 50 mcg Juwan Hanna 50 mcg FENTANYL given in lab by Juwan Hanna RN via Peripheral IV. Ordered by Barney Nails. ANGIOMAX BOLUS 03/14/2018 2:14:27 PM 11 mL Juwan Hanna 11 mL ANGIOMAX BOLUS given in lab by Juwan Hanna RN via Peripheral IV. Ordered by Barney Nails. NTG (IC) 03/14/2018 2:21:16 PM 100 mcg Barney Nails 100 mcg NTG (IC) given in lab by Barney Nails via Intra-coronary. Ordered by Barney Nails. EFFIENT 03/14/2018 2:34:36 PM 60 mg Juwan Hanna 60 mg EFFIENT given in lab by Juwan Hanna RN via Oral. Ordered by Barney Nails. Medication (Drip) Medication Time Given Dosage/Unit Concentration/Unit Diluent (ml) Solution ANGIOMAX DRIP 03/14/2018 2:16:10 PM 1.754 mg/kg/hr 250 mg 50 NaCl .9 1.754 mg/kg/hr ANGIOMAX DRIP given in lab by Barney Nails via Peripheral IV. Pump/Drip Flow = 25.5 ml/hr using NaCl .9 with a concentration of 250 mg in 50 ml. Ordered by Barney Nails. IV Solutions 03/14/2018 1:32:28 PM 0 mL (IV) 500 NaCl .9 Patient arrived on IV Solutions in Left Antecubital via Peripheral IV. Pump/Drip Flow = 20 ml/hr usin g NaCl .9. Ordered by Barney Nails. Initial Case Assessment Cardiovascular HR NIBP 94 98/78 Edema Present Skin color Skin None Normal Warm Dry Circulatory - Right Pulses Dorsalis Pedis Femoral 2 3 Scale (0,1,2,3,4,d) Circulatory - Left Pulses Dorsalis Pedis Femoral 3 3 Scale (0,1,2,3,4,d) Neurological State Oriented to time-place- Alert Moves all extremities person Respiration - General Respiration Rate SpO2 (%) O2 (lpm) (B/min) 16 94 2 Final Case Assessment Cardiovascular HR NIBP 94 98/78 Edema Present Skin color Skin None Normal Warm Dry Circulatory - Right Pulses Dorsalis Pedis Femoral 2 3 Scale (0,1,2,3,4,d) Circulatory - Left Pulses Dorsalis Pedis Femoral 3 3 Scale (0,1,2,3,4,d) Neurological State Oriented to time-place- Alert Moves all extremities person Respiration - General Respiration Rate SpO2 (%) O2 (lpm) (B/min) 16 94 2 Chronological Log Time Study Chronological Log 13:32:13 Patient arrived via Bed. 13:32:14 Patient Name, D.O.B, / Armband Verified By R.N. 13:32:14 Consent signed by the physician and the patient and verified by the Education Rep staff. 13:32:15 Pre-op and post- op instructions given; patient acknowledges understanding of instructions. 13:32:16 Presedation assessment performed by Education Rep RN. 13:32:22 Allens test performed on the right radial and ulnar artery. POSITIVE. 13:32:23 Immediate Presedation assesment performed by physician. 13:32:24 Skin Breakdown- none per patient 13:32:24 Patient has been NPO for More than 6Hrs. 13:32:25 Patient Warmer Placed on the Table. 13:32:26 Rick Prominences Protected 13:32:28 A # 20 IV was noted in the Antecubital (left). Grade = 0 Patient arrived on IV Solutions in Left Antecubital via Peripheral IV. Pump/Drip Flow = 20 ml/h r using NaCl .9. Ordered 13:32:28 by Barney Nails. 13:32:29 History and physical on the chart or being dictated. Vitals capture started with the following parameters, Patient=Adult, Interval=5 min, Initial Pr vmlgjn=985 mmHg, 13:38:09 Deflation Rate=5 mmHg, Cuff placed on Left Arm 13:38:42 HR=95 bpm, NIBP=93/72 mmhg, SpO2=95.0 %, Resp=15 B/min, Pain=0, Corey=10, Ross=2 13:43:35 HR=96 bpm, NIBP=96/72 mmhg, SpO2=95 %, Resp=15 B/min, Pain=0, Corey=10, Ross=2 13:48:07 Right Radial and groin(s) prepped with 2% chlorhexidine, and draped after a 3 min. waiting time. 13:48:34 HR=97 bpm, NIBP=98/78 mmhg, SpO2=92.0 %, Resp=14 B/min, Pain=0, Corey=10, Ross=2 Assessment: Initial Case, HR=94 BPM, NIBP=98/78 mmhg, Edema=None, Color=Normal, Skin = Warm, Dr y Right Pulses: Everardo Ped=2, Femoral=3 13:49:49 Left Pulses: Everardo Ped=3, Femoral=3 Neurological: State=Alert, Ox3, LAKE Respiration: Resp=16 B/min, SpO2=94 %, O2=2 lpm 13:51:02 Pressure channel 1 zeroed. 13:51:41 MD paged 13:51:41 MD responded 13:53:37 HR=97 bpm, NIBP=97/73 mmhg, SpO2=92 %, Resp=12 B/min, Pain=0, Corey=10, Ross=2 13:58:36 HR=97 bpm, BZYS=678/71 mmhg, Resp=13 B/min, Pain=0, Corey=10, Ross=2 13:58:36 MD arrived. 13:59:55 Reference ECG taken Time Out. Correct patient, correct procedure, correct physician, labs, allergies, and equipment verified with equipment operator/laborer 14:00:02 team present. Fire risk assesment completed (see hard stop sheet for coding). Time Out Conc urred by MD and individual staff in procedure. 14:03:09 Case Start 14:03:09 5 mL 1% XYLOCAINE given in lab by Barney Nails in Right Radial via Subcutaneous. Ordered by Barney Nails. 14:03:39 HR=93 bpm, NIBP=95/67 mmhg, Resp=4 B/min 14:04:21 Access site was Right Radial Artery . A SHEATH, FR6 RADIAL PRELUDE EASE 11CM FR 6 was advanced into the Radial (right) using the Perc utaneous 14:04:27 technique. 14:04:51 5000 units HEPARIN given in lab by Juwan Hnana, RN via Peripheral IV. Ordered by Steph Nails. A JR 5.0 INFINITI CATHETER FR 5 was advanced over a wire. OMNIPAQUE, 350 MG, 150ML 150ML was us ed for 14:07:14 injections. Recorded Pressure: Ao, HR=95, Condition=Condition 1 14:07:32 (Aorta) Ao 78/58/67 14:07:59 The RCA was injected and visualized at various angles. OMNIPAQUE, 350 MG, 150ML 150ML used . 14:08:00 1 mg VERSED given in lab by Juwan Hanna RN via Peripheral IV. Ordered by Barney Nails. 14:08:00 50 mcg FENTANYL given in lab by Juwan Hanna RN via Peripheral IV. Ordered by Sid Nails. After removing the current catheter a JL 3.5 INFINITI CATHETER FR 5 was advanced over a WIRE, E XCHANGE 260CM 14:08:23 3MMJ 260CM. 14:08:38 HR=94 bpm, NIBP=93/68 mmhg, SpO2=90 %, Resp=11 B/min, Pain=0, Corey=10, Ross=2 14:10:13 The LCA was injected and visualized at various angles. OMNIPAQUE, 350 MG, 150ML 150ML used . 14:11:46 Catheter was removed A JR 5.0 GUIDE CATHETER FR 6 was advanced over a wire. OMNIPAQUE, 350 MG, 150ML 150ML was used for 14:13:36 injections. 14:13:37 HR=93 bpm, NIBP=92/66 mmhg, Resp=9 B/min 14:14:27 11 mL ANGIOMAX BOLUS given in lab by Juwan Hanna RN via Peripheral IV. Ordered by Barney Nails. 14:14:36 A WIRE, RUNTHROUGH NS FLOPPY .014 180CM 180CM was inserted via Radial (right). 1.754 mg/kg/hr ANGIOMAX DRIP given in lab by Barney Nails via Peripheral IV. Pump/Drip Flow = 25.5 ml/hr using 14:16:10 NaCl .9 with a concentration of 250 mg in 50 ml. Ordered by Barney Nails. 14:18:39 HR=94 bpm, NIBP=92/66 mmhg, Resp=16 B/min, Pain=0, Corey=10, Ross=2 14:19:17 Interventional wire has crossed the lesion A STENT, 2.25 12MM MANUEL 2.25 12MM was advanced through a JR 5.0 GUIDE CATHETER FR 6 over a WIRE , 14:19:34 RUNTHROUGH NS FLOPPY .014 180CM 180CM. A STENT, 2.25 12MM MANUEL 2.25 12MM was deployed using a 30 PADMINI INDEFLATOR at 12 atmospheres for 18 seconds 14:19:43 in the RCA Dist. 14:21:06 Delivery device removed 14:21:16 100 mcg NTG (IC) given in lab by Barney Nails via Intra-coronary. Ordered by Sid Nails. 14:22:40 Wire removed 14:23:22 Catheter was removed 14:23:33 Case End (Physician broke scrub) 14:23:38 HR=94 bpm, NIBP=90/66 mmhg, Resp=8 B/min Assessment: Final Case, HR=94 BPM, NIBP=98/78 mmhg, Edema=None, Color=Normal, Skin = Warm, Dry Right Pulses: Everardo Ped=2, Femoral=3 14:27:59 Left Pulses: Everardo Ped=3, Femoral=3 Neurological: State=Alert, Ox3, [place] Respiration: Resp=16 B/min, SpO2=94 %, O2=2 lpm 14:28:22 Catheter(s) removed without difficulty 14:28:39 HR=92 bpm, NIBP=89/63 mmhg, Resp=10 B/min Radial Compression Device Used. 10 mLs of air placed in BAND, RADIAL COMPRESSION TR SHORT 24 2 4CM. Affected 14:28:46 hand 96 % O2 saturation. 14:29:10 Sterile dressing applied to site 14:29:11 No case complications noted. 14:29:12 Cine recording checked. 14:29:14 Bedside Report will be given. 14:29:16 A Left Heart Cath was performed. 14:29:19 Implantable Device card placed in patient's chart. 14:33:42 HR=93 bpm, NIBP=93/60 mmhg, SpO2=90.0 %, Resp=17 B/min 14:34:36 60 mg EFFIENT given in lab by Juwan Hanna RN via Oral. Ordered by Barney Nails. 14:34:53 Patient moved to stretcher End Study - Contrast Media Used In Study Contrast Total Opened (mL) Total Used (mL) Total Wasted (mL) Omnipaque 70 70 0 End Study - Maximum Contrast Load Max Contrast Load (mL) 454.5 End Study - Radiation Exposure Fluoro Time Fluoro Dose (mGy) Cine Dose (uGym2) (minutes) 3.3 [id number] End Study - Sheaths Sheaths Pulled By Sheath Hold Time (min) Duane Umanzor End Study - Patient Disposition Complications Transferred To Interventional Outcome No Telemetry Bed successful
[2018-03-14] MEDS ORDERED: Iohexol 350 MG/ML 100 ML Vial (for Cath Lab) IVCONTRAST ONE (15:44)
[2018-03-14] MEDS ORDERED: Insulin Detemir Inj 1,000 UNIT/10 ML Vial SQ SCH (21:00)
[2018-03-14] MEDS ORDERED: MethylPREDNISolone Sod Succinate Inj 40 MG/ML Vial IV.PUSH SCH (21:00)
[2018-03-15] MEDS: Heparin - SQ 10,000 UNITS/ML Vial SQ SCH (01:39)
[2018-03-15] MEDS: Insulin NovoLOG Aspart Correctional Sugar Inj SQ SCH ×4 (08:04→21:19)
[2018-03-15] MEDS: predniSONE 20 MG Tablet PO SCH (08:07)
[2018-03-15] MEDS: Spironolactone 25 MG Tablet PO SCH (08:07)
[2018-03-15] MEDS: Lisinopril 10 MG Tablet PO SCH (08:07)
[2018-03-15] MEDS: metOLazone 5 MG Tablet PO SCH (08:07)
[2018-03-15] MEDS: Carvedilol 12.5 MG Tablet PO SCH ×2 (08:08→21:00)
[2018-03-15] MEDS: Budesonide-Formoterol 160/4.5 MCG 6 GM Inhaler INH SCH ×2 (08:09→21:19)
[2018-03-15] MEDS: Tiotropium Bromide 18 MCG/ACT Inhaler INH SCH (08:09)
--- NOTE | 2018-03-15 11:30 | P.PNIM ---
Subjective Interval history: Still short of breath but better, denies any chest pain. No nausea or vomiting. Good urine output. Physical Exam Vital signs: Last Vital Signs Temp 98.1 F 03/15/18 08:00 Pulse 94 H 03/15/18 09:56 Resp 16 03/15/18 08:00 BP 107/83 03/15/18 08:00 Pulse Ox 99 03/15/18 08:00 Intake & Output 03/13/18 03/14/18 03/15/18 03/16/18 06:59 06:59 06:59 06:59 Intake Total 200 / 200 740 / 740 240 / 240 Output Total 0 / 0 3275 / 3275 2200 / 2200 Balance 200 / 200 -2535 / -2535 -1960 / -1960 Weight 73.1 kg 72.8 kg 70.6 kg Narrative: GENERAL: NAD CARDIOVASCULAR: Regular rate and rhythm. RESPIRATORY: No accessory muscle use. Clear to auscultation. Breath sounds equal bilaterally. Crackles at bases. GASTROINTESTINAL: Abdomen soft, non-tender, nondistended. Hepatic and splenic margins not palpable. MUSCULOSKELETAL: Extremities without clubbing, cyanosis.+1 edema BLE, improved. No obvious deformities. NEUROLOGICAL: Awake and alert. No obvious cranial nerve deficits. Motor grossly within normal limits. Five out of 5 muscle strength in the arms and legs. Normal speech. Results Labs CBC & Chem 7: 03/14/18 05:51 Procedures Procedures: None Assessment and Plan Plan Mr. López is a 52-year-old male with a history of congestive heart failure, diabetes mellitus, hypertension, and pancreatitis who presented to the emergency room in [place] for evaluation of shortness of breath and lower extremity swelling. Acute systolic CHF -on Lasix intravenously 40 mg 3 times a day, monitor urine output, cardiology following. 2D echocardiogram with EF 20%, patient may benefit from LifeVest. Cardiac catheterization done 03/14/2018, showed nonischemic cardiomyopathy, status post PCI with drug-eluting stent of the posterior descending coronary artery. Continue aspirin, switch IV Lasix to oral 40 mg 3 times a day, metolazone 5 mg daily, Aldactone 25 mg daily, Coreg 12.5 mg twice a day, lisinopril 10 mg daily, Potassium chloride 20 mEq 3 times a day. Repeat echocardiogram as outpatient in 3-4 months, and consideration for AICD placement if EF remains less than 35%. May benefit to get LifeVest prior to discharge. Bilateral pleural effusion-repeat chest x-ray showed new consolidative changes on the left base, no leukocytosis, pulmonary clinical picture improving, afebrile, recheck CBC tomorrow, might need thoracentesis. Suspect undiagnosed COPD secondary to long history of tobacco abuse -Tobacco cessation advised, Currently on Solu-Medrol 20 mg every 12H and continue with Spiriva, Symbicort, switch to prednisone 20 mg daily today. Continue duo nebs. Oxygen support. Type 2 Diabetes Mellitus, uncontrolled- increase levemir to 16 units, Accu- Cheks, medium dose sliding scale. BG is in the 300s, steroids likely not helping. Hemoglobin A1c pending DVT prophylaxis -Heparin 5000 units subcu every 8 hours Progress Note: Quality VTE Deep Vein Thrombosis/Pulmonary Embolism Present on Admission: No
--- NOTE | 2018-03-15 11:58 | P.PNCA ---
Subjective Interval history: Feeling much better. No chest pain. No short of breath. Encourage ambulation. Medications and Allergies Active Medications: Active Medications Acetaminophen (Tylenol) 650 mg PO Q4H PRN PRN Reason: Temp > 100.4 Al Hydroxide/Mg Hydroxide (Milk Of [place]illi[place] Liq) 30 ml PO DAILY PRN PRN Reason: SEVERE CONSITIPATION Albuterol (Duoneb Neb (Prn)) 1 ampul NEB Q2HR NEB PRN PRN Reason: SHORTNESS OF BREATH/WHEEZING Last Admin: 03/13/18 20:34 Dose: 1 ampul Aspirin (Aspirin Chew) 81 mg PO DAILY [facility] Last Admin: 03/15/18 08:07 Dose: 81 mg Budesonide/Formoterol Fumarate (Symbicort 160/4.5 Mcg Inh) 2 puff INH BID [facility] Last Admin: 03/15/18 08:09 Dose: 2 puff Carvedilol (Coreg) 12.5 mg PO BID [facility] Last Admin: 03/15/18 08:08 Dose: 12.5 mg Dextrose (D50w Vial) 50 ml IV.PUSH UNSCH PRN PRN Reason: PER HYPOGLYCEMIA PROTOCOL Duloxetine HCl (Cymbalta) 30 mg PO DAILY [facility] Last Admin: 03/15/18 08:07 Dose: 30 mg Furosemide (Lasix Inj) 40 mg IV.PUSH TID [facility] Last Admin: 03/15/18 07:59 Dose: 40 mg Glucagon (Glucagon Inj) 1 mg OTHER PRN PRN PRN Reason: for Hypoglycemia Protocol Insulin Aspart (Novolog Insulin Correctional Sugar Inj) 0 unit SQ ACHS [facility]; Protocol Last Admin: 03/15/18 11:47 Dose: 10 unit Insulin Detemir (Levemir Inj) 10 unit SQ HS [facility] Last Admin: 03/14/18 21:51 Dose: 10 unit Lisinopril (Prinivil) 10 mg PO DAILY [facility] Last Admin: 03/15/18 08:07 Dose: 10 mg Metolazone (Zaroxolyn) 5 mg PO DAILY [facility] Last Admin: 03/15/18 08:07 Dose: 5 mg Ondansetron HCl (Zofran Inj) 4 mg IV.PUSH Q6H PRN PRN Reason: NAUSEA Potassium Chloride (K-Dur) 20 meq PO TID [facility] Last Admin: 03/15/18 08:08 Dose: 20 meq Prasugrel (Effient) 10 mg PO DAILY [facility] Last Admin: 03/15/18 08:07 Dose: 10 mg Prednisone (Deltasone) 20 mg PO DAILY [facility] Last Admin: 03/15/18 08:07 Dose: 20 mg Sodium Chloride (Ns Flush) 2 ml IV.FLUSH BID [facility] Last Admin: 03/15/18 08:09 Dose: 2 ml Sodium Chloride (Ns Flush) 2 ml IV.FLUSH UNSCH PRN PRN Reason: FLUSH AFTER USING IV ACCESS Spironolactone (Aldactone) 25 mg PO DAILY [facility] Last Admin: 03/15/18 08:07 Dose: 25 mg Tiotropium Innis (Spiriva 18 Mcg Inh) 18 mcg INH DAILY [facility] Last Admin: 03/15/18 08:09 Dose: 18 mcg Allergies Allergy/AdvReac Type Severity Reaction Status Date / Time morphine AdvReac Vomiting Verified 03/12/18 17:06 Home Medications Medication Instructions Recorded Confirmed Type duloxetine 30 mg PO DAILY 03/12/18 03/13/18 History furosemide 40 mg PO DAILY 03/12/18 03/13/18 History linaclotide [Linzess] 145 mcg PO DAILY 03/12/18 03/13/18 History lisinopril 20 mg PO DAILY 03/12/18 03/13/18 History Physical Exam Vital signs: Vital Signs 03/14/18 12:00 03/14/18 15:14 03/14/18 17:00 Temperature 97.6 F 98.7 F Pulse Rate 105 H 100 H Respiratory Rate 18 18 Blood Pressure 104/73 96/69 L Pulse Oximetry 93 L 94 L 94 L 03/14/18 19:00 03/14/18 20:00 03/14/18 21:00 Temperature 97.7 F Pulse Rate 108 H 101 H 100 H Respiratory Rate 20 Blood Pressure 101/74 Pulse Oximetry 96 03/14/18 22:00 03/14/18 23:00 03/15/18 00:00 Temperature Pulse Rate 100 H 96 H 98 H Respiratory Rate 16 Blood Pressure 88/64 L Pulse Oximetry 98 03/15/18 01:00 03/15/18 02:00 03/15/18 03:00 Temperature Pulse Rate 104 H 102 H 96 H Respiratory Rate Blood Pressure Pulse Oximetry 03/15/18 04:00 03/15/18 05:00 03/15/18 05:47 Temperature Pulse Rate 106 H 102 H 104 H Respiratory Rate 16 Blood Pressure 112/85 Pulse Oximetry 96 03/15/18 06:00 03/15/18 07:00 03/15/18 08:00 Temperature 98.1 F Pulse Rate 104 H 103 H 105 H Respiratory Rate 16 Blood Pressure 107/83 Pulse Oximetry 99 03/15/18 09:00 03/15/18 09:56 03/15/18 11:00 Temperature Pulse Rate 100 H 94 H 94 H Respiratory Rate Blood Pressure Pulse Oximetry Intake & Output 03/14/18 03/15/18 03/15/18 18:59 06:59 18:59 Intake Total 240 / 240 Output Total 1000 / 1000 1200 / 1200 Balance -1000 / -1000 -960 / -960 Weight 70.6 kg Intake: Oral 240 / 240 Output: Urine 1000 / 1000 1200 / 1200 Other: Date of Last Bowel Movement 03/12/18 03/12/18 03/12/18 # Bowel Movements 0 - Constitutional no acute distress - Routine HEENT Exam Head: Present: normocephalic Eye: Present: EOMI, PERRL - Routine Neck Exam Present: supple, full ROM. Absent: JVD, carotid bruit - Routine Respiratory Exam Present: CTA bilaterally - Routine Cardiovascular Exam Present: RRR, S1, S2, S4 - Routine Abdominal Exam Present: soft, normoactive bowel sounds - Routine Extremities Exam Present: full ROM, normal capillary refill - Routine Skin Exam Present: intact, dry, warm - Routine Neurological Exam Present: alert, oriented X3 Results 03/14/18 05:51 Cardiac Enzymes 03/13/18 03/14/18 Range/Units 12:31 05:51 AST 20 (15-37) U/L Troponin I 0.54 H (0.02-0.05) ng/mL Comprehensive Metabolic Panel 03/14/18 Range/Units 05:51 Sodium 134 L (136-145) meq/L Potassium 3.8 (3.5-5.1) meq/L Chloride 95 L (98-107) meq/L Carbon Dioxide 29.0 (21.0-32.0) meq/L BUN 22 H (7-18) mg/dL Creatinine 0.88 (0.60-1.30) mg/dL Calcium 9.7 D (8.5-10.1) mg/dL AST 20 (15-37) U/L ALT 31 (12-78) U/L Alkaline Phosphatase 99 (45-117) U/L Total Protein 7.0 (6.4-8.2) g/dL Albumin 2.8 L (3.4-5.0) g/dL Intake and Output 03/14/18 03/15/18 03/15/18 22:59 06:59 14:59 Intake Total 240 / 240 Output Total 1000 / 1000 1200 / 1200 Balance -1000 / -1000 -960 / -960 Intake: Oral 240 / 240 Output: Urine 1000 / 1000 1200 / 1200 Other: Date of Last Bowel Movement 03/12/18 03/12/18 03/12/18 # Bowel Movements 0 Weight 70.6 kg - Imaging and Cardiology Imaging: Impressions Chest CTA 03/13/18 00:00 CONCLUSION: 1. No evidence of pulmonary emboli. 2. Cardiomegaly, bilateral pleural effusions and mild hazy airspace opacity in the dependent portions along bases. The findings most characteristic of mild congestive heart failure. Chest X-Ray 03/14/18 00:00 CONCLUSION: New consolidative changes left base with mild interstitial edema. Assessment and Plan - Assessment (1) Acute systolic CHF (congestive heart failure) Code(s): I50.21 - Acute systolic (congestive) heart failure Status: Acute (2) Non-ST elevated myocardial infarction Code(s): I21.4 - Non-ST elevation (NSTEMI) myocardial infarction Status: Acute - Plan Assessment: Acute decompensated congestive heart failure, systolic Severe cardiomyopathy, LVEF< 20% CAD, COPD with acute exacerbation Hypoxic respiratory failure Hypertension, currently normotensive Diabetes Pulmonary hypertension with PAP 59 mmHg by echocardiogram, suspect pulmonary venous hypertension in the setting of ADHF Recommendations: -Continue furosemide 40 mg 3 times daily -continue metolazone 5 mg daily -continue spironolactone 25 mg daily with holding parameters -Increase carvedilol to 12.5mg twice daily with holding parameters. He seems to be tolerating with wheezing resolved. -Continue reduced lisinopril to 10 mg daily with holding parameters -Monitor CR/K+ on current regimen. Maintain K+ greater than 4.0, will increase KCL to 20meq tid today -Monitor on telemetry - [facility] 03/14/18 s/p PDA PCI with AFSHAN. . -He will require outpatient up titration of cardiac medications for OMT of underlying cardiomyopathy as well as repeat echocardiogram in 3-4 months for consideration of AICD placement for primary prevention of SCD if EF remains less than 35%. -May benefit from LifeVest placement prior to discharge. Consult case management to assist.
[2018-03-15 14:04] LABS: Hemoglobin A1c 12.8 % (4.3-6.0)
[2018-03-15] MEDS: Furosemide 40 MG Tablet PO SCH (17:03)
[2018-03-15] MEDS: Insulin Detemir Inj 1,000 UNIT/10 ML Vial SQ SCH (21:19)
[2018-03-16 07:34] LABS: Baso # (Auto) 0.1 th/mm3 (0.0-0.2); Baso % (Auto) 0.6 % (0.0-2.0); Eos # (Auto) 0.1 th/mm3 (0.0-0.4); Eos % (Auto) 0.6 % (0.0-4.0); Hematocrit 49.8 % (39.0-51.0); Hemoglobin 16.8 gm/dL (13.0-17.0); Lymph # (Auto) 2.2 th/mm3 (1.0-4.8); Lymph % (Auto) 18.6 % (9.0-44.0); Mean Corpuscular HGB Conc 33.7 % (32.0-36.0); Mean Corpuscular Hemoglobin 32.3 pg (27.0-34.0); Mean Corpuscular Volume 95.9 fL (80.0-100.0); Mean Platelet Volume 9.6 fL (7.0-11.0); Mono # (Auto) 1.2 th/mm3 (0.0-0.9); Mono % (Auto) 10.1 % (0.0-8.0); Neut # (Auto) 8.3 th/mm3 (1.8-7.7); Neut % (Auto) 70.1 % (16.0-70.0); Platelet Count 200 th/mm3 (150-450); Red Blood Count 5.19 mil/mm3 (4.50-5.90); Red Cell Distribution Width 13.9 % (11.6-17.2); White Blood Count 11.8 th/mm3 (4.0-11.0)
[2018-03-16 08:03] LABS: Calcium 9.7 mg/dL (8.5-10.1); Carbon Dioxide 30.8 meq/L (21.0-32.0); Potassium 3.9 meq/L (3.5-5.1)
[2018-03-16] MEDS: Insulin NovoLOG Aspart Correctional Sugar Inj SQ SCH ×4 (08:14→22:15)
[2018-03-16] MEDS: metOLazone 5 MG Tablet PO SCH (08:15)
[2018-03-16] MEDS: Furosemide 40 MG Tablet PO SCH ×3 (08:15→17:19)
[2018-03-16] MEDS: Spironolactone 25 MG Tablet PO SCH (08:15)
[2018-03-16] MEDS: Lisinopril 10 MG Tablet PO SCH (08:16)
[2018-03-16] MEDS: Carvedilol 12.5 MG Tablet PO SCH ×2 (08:16→22:14)
[2018-03-16] MEDS: predniSONE 20 MG Tablet PO SCH (08:16)
[2018-03-16] MEDS: Tiotropium Bromide 18 MCG/ACT Inhaler INH SCH (08:16)
[2018-03-16] MEDS: Budesonide-Formoterol 160/4.5 MCG 6 GM Inhaler INH SCH ×2 (08:16→22:16)
--- NOTE | 2018-03-16 10:07 | P.PNIM ---
Subjective Interval history: No Overnight events, on room air. No shortness of breath. No chest pain. Physical Exam Vital signs: Last Vital Signs Temp 97.8 F 03/16/18 08:00 Pulse 101 H 03/16/18 08:00 Resp 16 03/16/18 08:00 BP 121/91 H 03/16/18 08:00 Pulse Ox 99 03/16/18 08:00 Intake & Output 03/14/18 03/15/18 03/16/18 03/17/18 06:59 06:59 06:59 06:59 Intake Total 740 / 740 240 / 240 1300 / 1300 Output Total 3275 / 3275 2200 / 2200 2375 / 2375 Balance -2535 / -2535 -1960 / -1960 -1075 / -1075 Weight 72.8 kg 70.6 kg 67 kg Narrative: GENERAL: NAD CARDIOVASCULAR: Regular rate and rhythm. RESPIRATORY: No accessory muscle use. Clear to auscultation. Breath sounds equal bilaterally. Minimal crackles. GASTROINTESTINAL: Abdomen soft, non-tender, nondistended. Hepatic and splenic margins not palpable. MUSCULOSKELETAL: Extremities without clubbing, cyanosis. Trace edema BLE, improved. No obvious deformities. NEUROLOGICAL: Awake and alert. No obvious cranial nerve deficits. Motor grossly within normal limits. Five out of 5 muscle strength in the arms and legs. Normal speech. Results Labs CBC & Chem 7: 03/16/18 06:54 03/16/18 06:54 Procedures Procedures: NCardiac catheterization done 03/14/2018, showed nonischemic cardiomyopathy, status post PCI with drug-eluting stent of the posterior descending coronary artery.one Assessment and Plan (1) Acute systolic CHF (congestive heart failure): Code(s): I50.21 - Acute systolic (congestive) heart failure Status: Acute (2) Non-ST elevated myocardial infarction: Code(s): I21.4 - Non-ST elevation (NSTEMI) myocardial infarction Status: Acute Plan Mr. López is a 52-year-old male with a history of congestive heart failure, diabetes mellitus, hypertension, and pancreatitis who presented to the emergency room in [place] for evaluation of shortness of breath and lower extremity swelling. Chest x-ray showed evidence of congestive heart failure. CT scan of the chest ruled out PE, showed bilateral pleural effusions. Patient was admitted for acute systolic congestive heart failure, started on diuretics. Echocardiogram showed ejection fraction of 20%. Cardiac catheterization done 03/14/2018, showed nonischemic cardiomyopathy, status post PCI with drug- eluting stent of the posterior descending coronary artery. Patient started on metolazone, Aldactone, Coreg, lisinopril, potassium supplementation and Lasix. Patient will need LifeVest prior to discharge. Patient is also being treated for COPD with long-term tobacco use, he is on a tapering dose of prednisone. Continue Spiriva, Symbicort and bronchodilators. Patient's diabetes mellitus was also uncontrolled, patient started on metformin, Levemir was increased. Acute systolic CHF -on Lasix 40 mg 3 times a day, switched to p.o. Cardiology following. Continue metolazone 5 mg daily, Aldactone 25 mg daily, Coreg 12.5 mg twice a day, lisinopril 10 mg daily, Potassium chloride 20 mEq 3 times a day. Repeat echocardiogram as outpatient in 3-4 months, and consideration for AICD placement if EF remains less than 35%. May benefit to get LifeVest prior to discharge, case management is aware. Bilateral pleural effusion-repeat chest x-ray showed new consolidative changes on the left base, no leukocytosis, pulmonary clinical picture improving, afebrile, WBC increased but also on steroids. Recheck chest x-ray with lateral decubitus, rule out need for thoracentesis. Suspect undiagnosed COPD secondary to long history of tobacco abuse -Tobacco cessation advised, continue prednisone, decrease to 10 mg daily, taper fast, Spiriva, Symbicort, duo nebs. Oxygen support. Type 2 Diabetes Mellitus, uncontrolled- increased levemir to 16 units, BG is now better, Accu-Cheks, medium dose sliding scale. BG is in the 100s. Hemoglobin A1c 12.8. Start metformin, kidney function stable. Consider Jiardiance on discharge DVT prophylaxis -Heparin 5000 units subcu every 8 hours Discharge pending LifeVest and r/o significant effusion Progress Note: Quality VTE Deep Vein Thrombosis/Pulmonary Embolism Present on Admission: No
--- NOTE | 2018-03-16 16:02 | P.PNCA ---
Subjective Interval history: No new event. Waiting for Lifevest. Feeling much better. Ambulated on the floor with no chest pain. Telemetry showed no arrhythmia. Medications and Allergies Active Medications: Active Medications Acetaminophen (Tylenol) 650 mg PO Q4H PRN PRN Reason: Temp > 100.4 Al Hydroxide/Mg Hydroxide (Milk Of Karin Liq) 30 ml PO DAILY PRN PRN Reason: SEVERE CONSITIPATION Albuterol (Duoneb Neb (Prn)) 1 ampul NEB Q2HR NEB PRN PRN Reason: SHORTNESS OF BREATH/WHEEZING Last Admin: 03/13/18 20:34 Dose: 1 ampul Aspirin (Aspirin Chew) 81 mg PO DAILY [facility] Last Admin: 03/16/18 08:15 Dose: 81 mg Budesonide/Formoterol Fumarate (Symbicort 160/4.5 Mcg Inh) 2 puff INH BID [facility] Last Admin: 03/16/18 08:16 Dose: 2 puff Carvedilol (Coreg) 12.5 mg PO BID [facility] Last Admin: 03/16/18 08:16 Dose: 12.5 mg Dextrose (D50w Vial) 50 ml IV.PUSH UNSCH PRN PRN Reason: PER HYPOGLYCEMIA PROTOCOL Duloxetine HCl (Cymbalta) 30 mg PO DAILY [facility] Last Admin: 03/16/18 08:15 Dose: 30 mg Furosemide (Lasix) 40 mg PO TID [facility] Last Admin: 03/16/18 12:18 Dose: 40 mg Glucagon (Glucagon Inj) 1 mg OTHER PRN PRN PRN Reason: for Hypoglycemia Protocol Insulin Aspart (Novolog Insulin Correctional Sugar Inj) 0 unit SQ ACHS [facility]; Protocol Last Admin: 03/16/18 12:18 Dose: 7 unit Insulin Detemir (Levemir Inj) 16 unit SQ HS [facility] Last Admin: 03/15/18 21:19 Dose: 16 unit Lisinopril (Prinivil) 10 mg PO DAILY [facility] Last Admin: 03/16/18 08:16 Dose: 10 mg Metformin [facility] (Glucophage) [facility] Last Admin: 03/16/18 12:18 Dose: 850 mg Metolazone (Zaroxolyn) 5 mg PO DAILY [facility] Last Admin: 03/16/18 08:15 Dose: 5 mg Ondansetron HCl (Zofran Inj) 4 mg IV.PUSH Q6H PRN PRN Reason: NAUSEA Potassium Chloride (K-Dur) 20 meq PO TID [facility] Last Admin: 03/16/18 12:18 Dose: 20 meq Prasugrel (Effient) 10 mg PO DAILY [facility] Last Admin: 03/16/18 08:16 Dose: 10 mg Prednisone (Deltasone) 10 mg PO DAILY [facility] Sodium Chloride (Ns Flush) 2 ml IV.FLUSH BID [facility] Last Admin: 03/16/18 08:16 Dose: 2 ml Sodium Chloride (Ns Flush) 2 ml IV.FLUSH UNSCH PRN PRN Reason: FLUSH AFTER USING IV ACCESS Spironolactone (Aldactone) 25 mg PO DAILY [facility] Last Admin: 03/16/18 08:15 Dose: 25 mg Tiotropium [place] (Spiriva 18 Mcg Inh) 18 mcg INH DAILY [facility] Last Admin: 03/16/18 08:16 Dose: 18 mcg Allergies Allergy/AdvReac Type Severity Reaction Status Date / Time morphine AdvReac Vomiting Verified 03/12/18 17:06 Home Medications Medication Instructions Recorded Confirmed Type duloxetine 30 mg PO DAILY 03/12/18 03/13/18 History furosemide 40 mg PO DAILY 03/12/18 03/13/18 History linaclotide [Linzess] 145 mcg PO DAILY 03/12/18 03/13/18 History lisinopril 20 mg PO DAILY 03/12/18 03/13/18 History Physical Exam Vital signs: Vital Signs 03/15/18 17:00 03/15/18 17:06 03/15/18 19:00 Temperature Pulse Rate 92 H 99 H 99 H Respiratory Rate Blood Pressure Pulse Oximetry 03/15/18 20:00 03/15/18 21:00 03/15/18 22:00 Temperature 97.8 F Pulse Rate 94 H 92 H 96 H Respiratory Rate 18 Blood Pressure 90/60 L Pulse Oximetry 95 03/15/18 23:00 03/16/18 00:00 03/16/18 01:00 Temperature 97.5 F L Pulse Rate 92 H 94 H 96 H Respiratory Rate 20 Blood Pressure 100/82 Pulse Oximetry 97 03/16/18 02:00 03/16/18 03:00 03/16/18 04:00 Temperature Pulse Rate 100 H 97 H 104 H Respiratory Rate 20 Blood Pressure 86/56 L Pulse Oximetry 98 03/16/18 05:00 03/16/18 06:00 03/16/18 07:00 Temperature Pulse Rate 96 H 99 H 101 H Respiratory Rate Blood Pressure Pulse Oximetry 03/16/18 08:00 03/16/18 09:00 03/16/18 10:00 Temperature 97.8 F Pulse Rate 101 H 106 H 105 H Respiratory Rate 16 Blood Pressure 121/91 H Pulse Oximetry 99 03/16/18 11:00 03/16/18 12:00 03/16/18 12:46 Temperature 97.9 F Pulse Rate 93 H 90 94 H Respiratory Rate 18 Blood Pressure 77/59 L Pulse Oximetry 97 03/16/18 14:00 03/16/18 14:40 03/16/18 15:54 Temperature Pulse Rate 90 91 H 92 H Respiratory Rate Blood Pressure Pulse Oximetry Intake & Output 03/15/18 03/16/18 03/16/18 18:59 06:59 18:59 Intake Total 1060 / 1060 240 / 240 Output Total 1950 / 1950 425 / 425 Balance -890 / -890 -185 / -185 Weight 67 kg Intake: Oral 1060 / 1060 240 / 240 Output: Urine 1949 / 1950 425 / 425 Other: Date of Last Bowel Movement 03/12/18 03/13/18 03/13/18 - Constitutional no acute distress - Routine HEENT Exam Head: Present: normocephalic, CSF rhinorrhea Eye: Present: EOMI, PERRL - Routine Neck Exam Present: supple, full ROM, JVD. Absent: carotid bruit - Routine Respiratory Exam Present: decreased breath sounds, CTA bilaterally - Routine Cardiovascular Exam Present: RRR, S1, S2, murmur, S3 - Routine Abdominal Exam Present: soft, normoactive bowel sounds - Routine Extremities Exam Present: normal capillary refill - Routine Skin Exam Present: dry, warm - Routine Neurological Exam Present: alert, oriented X3, CN II-XII intact - Routine Psychiatric Exam Present: normal affect Results 03/16/18 06:54 03/16/18 06:54 CBC 03/16/18 Range/Units 06:54 WBC 11.8 H (4.0-11.0) th/mm3 RBC 5.19 (4.50-5.90) mil/mm3 Hgb 16.8 (13.0-17.0) gm/dL Hct 49.8 (39.0-51.0) % Plt Count 200 (150-450) th/mm3 Neut # (Auto) 8.3 H (1.8-7.7) th/mm3 Lymph # (Auto) 2.2 (1.0-4.8) th/mm3 [place] # (Auto) 1.2 H (0.0-0.9) th/mm3 Eos # (Auto) 0.1 (0.0-0.4) th/mm3 Baso # (Auto) 0.1 (0.0-0.2) th/mm3 Comprehensive Metabolic Panel 03/16/18 Range/Units 06:54 Sodium 136 (136-145) meq/L Potassium 3.9 (3.5-5.1) meq/L Chloride 97 L (98-107) meq/L Carbon Dioxide 30.8 (21.0-32.0) meq/L BUN 42 H (7-18) mg/dL Creatinine 0.95 (0.60-1.30) mg/dL Calcium 9.7 (8.5-10.1) mg/dL Intake and Output 03/16/18 03/16/18 03/16/18 06:59 14:59 22:59 Intake Total 240 / 240 Output Total 425 / 425 Balance -185 / -185 Intake: Oral 240 / 240 Output: Urine 425 / 425 Other: Date of Last Bowel Movement 03/13/18 03/13/18 03/13/18 Weight 67 kg Assessment and Plan - Assessment (1) Acute systolic CHF (congestive heart failure) Code(s): I50.21 - Acute systolic (congestive) heart failure Status: Acute (2) Non-ST elevated myocardial infarction Code(s): I21.4 - Non-ST elevation (NSTEMI) myocardial infarction Status: Acute - Plan Assessment: Acute decompensated congestive heart failure, systolic Severe cardiomyopathy, LVEF< 20% CAD, COPD with acute exacerbation Hypoxic respiratory failure Hypertension, currently normotensive Diabetes Pulmonary hypertension with PAP 59 mmHg by echocardiogram, suspect pulmonary venous hypertension in the setting of ADHF Recommendations: -Continue furosemide 40 mg 3 times daily -continue metolazone 5 mg daily -continue spironolactone 25 mg daily with holding parameters - carvedilol to 12.5mg twice daily with holding parameters. He seems to be tolerating with wheezing resolved. - lisinopril to 10 mg daily with holding parameters -Monitor CR/K+ on current regimen. -Monitor on telemetry - [facility] 03/14/18 s/p PDA PCI with AFSHAN. . -He will require outpatient up titration of cardiac medications for OMT of underlying cardiomyopathy as well as repeat echocardiogram in 3-4 months for consideration of AICD placement for primary prevention of SCD if EF remains less than 35%. -May benefit from LifeVest placement prior to discharge. Case management is aware. CP Cardiology will continue care this patient tomorrow.
--- NOTE | 2018-03-16 18:25 | XR ---
EXAM DATE: 03/16/2018 6:20 PM EST AGE/SEX: 52 years / Male INDICATIONS: Patient is short of breath. CLINICAL DATA: This is the patient's subsequent encounter. Patient reports that signs and symptoms h ave been present for 3 days and indicates a pain score of 3/10. MEDICAL/SURGICAL HISTORY: . Congestive heart failure. Hypertension. Diabetes mellitus type II. Pancreatitis. Cholecystectomy. Cervical spine fusion. . COMPARISON: [facility] [place] 2V AP&LAT, 03/14/2018. . FINDINGS: The lungs are clear without infiltrate, nodule, or mass. There is no appreciable pleural effusion for technique. Heart and mediastinum are unremarkable. CONCLUSION: No acute cardiopulmonary disease. Electronically signed by: Giorgi Bardales MD Board Certified Radiologist 03/16/2018 6:24 PM EST
[2018-03-16] MEDS: Insulin Detemir Inj 1,000 UNIT/10 ML Vial SQ SCH (22:15)
[2018-03-17] MEDS: Furosemide 40 MG Tablet PO SCH (08:18)
[2018-03-17] MEDS: Carvedilol 12.5 MG Tablet PO SCH (08:18)
[2018-03-17] MEDS: metOLazone 5 MG Tablet PO SCH (08:18)
[2018-03-17] MEDS: Tiotropium Bromide 18 MCG/ACT Inhaler INH SCH (08:19)
[2018-03-17] MEDS: Lisinopril 10 MG Tablet PO SCH (08:19)
[2018-03-17] MEDS: Insulin NovoLOG Aspart Correctional Sugar Inj SQ SCH ×2 (08:19→12:37)
[2018-03-17] MEDS: Spironolactone 25 MG Tablet PO SCH (08:19)
[2018-03-17] MEDS: Budesonide-Formoterol 160/4.5 MCG 6 GM Inhaler INH SCH (08:20)
--- NOTE | 2018-03-17 08:46 | P.PNCA ---
Subjective Interval history: Complains of fatigue. BPs are soft and carvedilol has been held. -300 fluid balance on high-dose diuretics. Occasional left flank pain that occurs at rest lasting about 1-2 minutes. Denies positional or pleuritic component to left chest discomfort. Denies shortness of breath, orthopnea, leg swelling, palpitations. Medications and Allergies Active Medications: Active Medications Acetaminophen (Tylenol) 650 mg PO Q4H PRN PRN Reason: Temp > 100.4 Al Hydroxide/Mg Hydroxide (Milk Of Karin Gage) 30 ml PO DAILY PRN PRN Reason: SEVERE CONSITIPATION Albuterol (Duoneb Neb (Prn)) 1 ampul NEB Q2HR NEB PRN PRN Reason: SHORTNESS OF BREATH/WHEEZING Last Admin: 03/13/18 20:34 Dose: 1 ampul Aspirin (Aspirin Chew) 81 mg PO DAILY [facility] Last Admin: 03/17/18 08:19 Dose: 81 mg Budesonide/Formoterol Fumarate (Symbicort 160/4.5 Mcg Inh) 2 puff INH BID [facility] Last Admin: 03/17/18 08:20 Dose: 2 puff Carvedilol (Coreg) 6.25 mg PO BID [facility] Dextrose (D50w Vial) 50 ml IV.PUSH UNSCH PRN PRN Reason: PER HYPOGLYCEMIA PROTOCOL Duloxetine HCl (Cymbalta) 30 mg PO DAILY [facility] Last Admin: 03/17/18 08:18 Dose: 30 mg Glucagon (Glucagon Inj) 1 mg OTHER PRN PRN PRN Reason: for Hypoglycemia Protocol Insulin Aspart (Novolog Insulin Correctional Sugar Inj) 0 unit SQ ACHS [facility]; Protocol Last Admin: 03/17/18 08:19 Dose: Not Given Insulin Detemir (Levemir Inj) 16 unit SQ HS [facility] Last Admin: 03/16/18 22:15 Dose: 16 unit Lisinopril (Prinivil) 5 mg PO DAILY [facility] ([facility]) [facility] Last Admin: 03/17/18 08:17 Dose: 850 mg Metolazone (Zaroxolyn) 5 mg PO DAILY [facility] Last Admin: 03/17/18 08:18 Dose: 5 mg Miscellaneous (Pill Splitter) 1 each OTHER UNSCH PRN PRN Reason: SEE LABEL COMMENTS Ondansetron HCl (Zofran Inj) 4 mg IV.PUSH Q6H PRN PRN Reason: NAUSEA Potassium Chloride (K-Dur) 20 meq PO TID [facility] Last Admin: 03/17/18 08:18 Dose: 20 meq Prasugrel (Effient) 10 mg PO DAILY [facility] Last Admin: 03/17/18 08:18 Dose: 10 mg Prednisone (Deltasone) 10 mg PO DAILY [facility] Last Admin: 03/17/18 08:19 Dose: 10 mg Sodium Chloride (Ns Flush) 2 ml IV.FLUSH BID [facility] Last Admin: 03/17/18 08:19 Dose: 2 ml Sodium Chloride (Ns Flush) 2 ml IV.FLUSH UNSCH PRN PRN Reason: FLUSH AFTER USING IV ACCESS Spironolactone (Aldactone) 12.5 mg PO DAILY [facility] Tiotropium [place] (Spiriva 18 Mcg Inh) 18 mcg INH DAILY [facility] Last Admin: 03/17/18 08:19 Dose: 18 mcg Allergies Allergy/AdvReac Type Severity Reaction Status Date / Time morphine AdvReac Vomiting Verified 03/12/18 17:06 Home Medications Medication Instructions Recorded Confirmed Type duloxetine 30 mg PO DAILY 03/12/18 03/13/18 History furosemide 40 mg PO DAILY 03/12/18 03/13/18 History linaclotide [Linzess] 145 mcg PO DAILY 03/12/18 03/13/18 History lisinopril 20 mg PO DAILY 03/12/18 03/13/18 History Physical Exam Vital signs: Vital Signs 03/16/18 09:00 03/16/18 10:00 03/16/18 11:00 Temperature Pulse Rate 106 H 105 H 93 H Respiratory Rate Blood Pressure Pulse Oximetry 03/16/18 12:00 03/16/18 12:46 03/16/18 14:00 Temperature 97.9 F Pulse Rate 90 94 H 90 Respiratory Rate 18 Blood Pressure 77/59 L Pulse Oximetry 97 03/16/18 14:40 03/16/18 15:54 03/16/18 16:00 Temperature 98.1 F Pulse Rate 91 H 92 H 88 Respiratory Rate 18 Blood Pressure 96/74 L Pulse Oximetry 97 03/16/18 17:00 03/16/18 18:00 03/16/18 19:00 Temperature Pulse Rate 95 H 94 H 93 H Respiratory Rate Blood Pressure Pulse Oximetry 03/16/18 20:00 03/16/18 21:00 03/16/18 22:00 Temperature 97.4 F L Pulse Rate 92 H 94 H 92 H Respiratory Rate 18 Blood Pressure 107/71 Pulse Oximetry 95 03/16/18 23:00 03/17/18 00:00 03/17/18 01:00 Temperature Pulse Rate 93 H 93 H 88 Respiratory Rate 18 Blood Pressure 103/77 Pulse Oximetry 98 03/17/18 02:00 03/17/18 03:00 03/17/18 04:00 Temperature Pulse Rate 92 H 91 H 88 Respiratory Rate 18 Blood Pressure 99/73 L Pulse Oximetry 98 03/17/18 05:00 03/17/18 06:00 Temperature Pulse Rate 91 H 94 H Respiratory Rate Blood Pressure Pulse Oximetry Intake & Output 03/16/18 03/17/18 03/17/18 18:59 06:59 18:59 Intake Total 720 / 720 240 / 240 Output Total 1300 / 1300 Balance -580 / -580 240 / 240 Weight 147 lb 14.883 oz Intake: Oral 720 / 720 240 / 240 Output: Urine 1300 / 1300 Other: # Voids 3 Date of Last Bowel Movement 03/16/18 03/17/18 # Bowel Movements 1 1 Narrative: GENERAL: Well-developed well-nourished. In no acute distress. NECK: No carotid bruits. No JVD. CARDIOVASCULAR: Regular rate and rhythm. No murmur appreciated. RESPIRATORY: No accessory muscle use. Clear to auscultation. Breath sounds equal bilaterally. MUSCULOSKELETAL: No clubbing or cyanosis. No edema. NEUROLOGICAL: Awake and alert. Normal speech. Results 03/16/18 06:54 03/16/18 06:54 CBC 03/16/18 Range/Units 06:54 WBC 11.8 H (4.0-11.0) th/mm3 RBC 5.19 (4.50-5.90) mil/mm3 Hgb 16.8 (13.0-17.0) gm/dL Hct 49.8 (39.0-51.0) % Plt Count 200 (150-450) th/mm3 Neut # (Auto) 8.3 H (1.8-7.7) th/mm3 Lymph # (Auto) 2.2 (1.0-4.8) th/mm3 [place] # (Auto) 1.2 H (0.0-0.9) th/mm3 Eos # (Auto) 0.1 (0.0-0.4) th/mm3 Baso # (Auto) 0.1 (0.0-0.2) th/mm3 Comprehensive Metabolic Panel 03/16/18 Range/Units 06:54 Sodium 136 (136-145) meq/L Potassium 3.9 (3.5-5.1) meq/L Chloride 97 L (98-107) meq/L Carbon Dioxide 30.8 (21.0-32.0) meq/L BUN 42 H (7-18) mg/dL Creatinine 0.95 (0.60-1.30) mg/dL Calcium 9.7 (8.5-10.1) mg/dL Intake and Output 03/16/18 03/17/18 03/17/18 22:59 06:59 14:59 Intake Total 720 / 720 240 / 240 Output Total 1300 / 1300 Balance -580 / -580 240 / 240 Intake: Oral 720 / 720 240 / 240 Output: Urine 1300 / 1300 Other: # Voids 3 Date of Last Bowel Movement 03/13/18 03/17/18 # Bowel Movements 1 1 Weight 147 lb 14.883 oz - Imaging and Cardiology Imaging: Impressions Chest X-Ray 03/16/18 10:50 CONCLUSION: No acute cardiopulmonary disease. Assessment and Plan - Plan Assessment: Acute decompensated congestive heart failure, systolicimproved, and actually appears clinically dry currently Severe cardiomyopathy, LVEF< 20% CAD, [facility] 03/14/18 s/p PDA PCI with AFSHAN. COPD with acute exacerbation Hypoxic respiratory failureresolved Hypertension, currently hypotensive Diabetes Pulmonary hypertension with PAP 59 mmHg by echocardiogram, suspect pulmonary venous hypertension in the setting of ADHF Recommendations: -Decrease furosemide 40 mg p.o. to twice daily -Discontinue metolazone 5 mg daily -Resume spironolactone at 12.5 mg daily -Resume lisinopril at 2.5 mg daily -Decrease KCl to 20 mEq twice daily -He would benefit from LifeVest at discharge, were placed and case management on board -He will require outpatient up titration of cardiac medications for OMT of underlying cardiomyopathy as well as repeat echocardiogram in 3-4 months for consideration of AICD placement for primary prevention of SCD if EF remains less than 35%. Discharge planning from cardiology perspective with cardiac regimen as above. Discussed Condition With: Patient with RN at bedside, Dr. Renteria
[2018-03-17] MEDS ORDERED: Furosemide 40 MG Tablet PO SCH (09:00)
[2018-03-17] MEDS ORDERED: Lisinopril 5 MG Tablet PO SCH (09:00)
[2018-03-17] MEDS ORDERED: Carvedilol 6.25 MG Tablet PO SCH (09:00)
[2018-03-17] MEDS ORDERED: predniSONE 10 MG Tablet PO SCH (09:00)
[2018-03-17] MEDS ORDERED: Spironolactone 25 MG Tablet PO SCH (09:00)
--- NOTE | 2018-03-17 09:12 | P.PNIM ---
Subjective Interval history: Patient says he is feeling well today. Reports continued pleuritic left-sided chest pain. Says he would like to go home. Physical Exam Vital signs: Vital Signs 03/16/18 10:00 03/16/18 11:00 03/16/18 12:00 Temperature 97.9 F Pulse Rate 105 H 93 H 90 Respiratory Rate 18 Blood Pressure 77/59 L Pulse Oximetry 97 03/16/18 12:46 03/16/18 14:00 03/16/18 14:40 Temperature Pulse Rate 94 H 90 91 H Respiratory Rate Blood Pressure Pulse Oximetry 03/16/18 15:54 03/16/18 16:00 03/16/18 17:00 Temperature 98.1 F Pulse Rate 92 H 88 95 H Respiratory Rate 18 Blood Pressure 96/74 L Pulse Oximetry 97 03/16/18 18:00 03/16/18 19:00 03/16/18 20:00 Temperature 97.4 F L Pulse Rate 94 H 93 H 92 H Respiratory Rate 18 Blood Pressure 107/71 Pulse Oximetry 95 03/16/18 21:00 03/16/18 22:00 03/16/18 23:00 Temperature Pulse Rate 94 H 92 H 93 H Respiratory Rate Blood Pressure Pulse Oximetry 03/17/18 00:00 03/17/18 01:00 03/17/18 02:00 Temperature Pulse Rate 93 H 88 92 H Respiratory Rate 18 Blood Pressure 103/77 Pulse Oximetry 98 03/17/18 03:00 03/17/18 04:00 03/17/18 05:00 Temperature Pulse Rate 91 H 88 91 H Respiratory Rate 18 Blood Pressure 99/73 L Pulse Oximetry 98 03/17/18 06:00 Temperature Pulse Rate 94 H Respiratory Rate Blood Pressure Pulse Oximetry Intake & Output 03/16/18 03/17/18 03/17/18 18:59 06:59 18:59 Intake Total 720 / 720 240 / 240 Output Total 1300 / 1300 Balance -580 / -580 240 / 240 Weight 67.1 kg Intake: Oral 720 / 720 240 / 240 Output: Urine 1300 / 1300 Other: # Voids 3 Date of Last Bowel Movement 03/16/18 03/17/18 # Bowel Movements 1 1 Narrative: GENERAL: Sitting up in bed to bed. Appears comfortable. SKIN: Warm and dry. HEAD: Normocephalic. EYES: No scleral icterus. No injection or drainage. NECK: Supple, trachea midline. No JVD. CARDIOVASCULAR: Regular rate and rhythm without murmurs, gallops, or rubs. RESPIRATORY: Breath sounds equal bilaterally. No accessory muscle use. GASTROINTESTINAL: Abdomen soft, non-tender, nondistended. MUSCULOSKELETAL: No cyanosis, or edema. BACK: Nontender without obvious deformity. No CVA tenderness. Results - Labs CBC & Chem 7: 03/16/18 06:54 03/16/18 06:54 Laboratory Results - last 24 hr 03/16/18 03/16/18 03/16/18 12:13 17:17 20:53 POC Glucose 256 H 370 H 341 H 03/17/18 08:11 POC Glucose 99 - Imaging Impressions Chest X-Ray 03/16/18 10:50 CONCLUSION: No acute cardiopulmonary disease. - Procedures NCardiac catheterization done 03/14/2018, showed nonischemic cardiomyopathy, status post PCI with drug-eluting stent of the posterior descending coronary artery.one Assessment and Plan - Assessment (1) Acute systolic CHF (congestive heart failure) Code(s): I50.21 - Acute systolic (congestive) heart failure Status: Acute (2) Non-ST elevated myocardial infarction Code(s): I21.4 - Non-ST elevation (NSTEMI) myocardial infarction Status: Acute - Plan Mr. López is a 52-year-old male with a history of congestive heart failure, diabetes mellitus, hypertension, and pancreatitis who presented to the emergency room in [place] for evaluation of shortness of breath and lower extremity swelling. Chest x-ray showed evidence of congestive heart failure. CT scan of the chest ruled out PE, showed bilateral pleural effusions. Patient was admitted for acute systolic congestive heart failure, started on diuretics. Echocardiogram showed ejection fraction of 20%. Cardiac catheterization done 03/14/2018, showed nonischemic cardiomyopathy, status post PCI with drug- eluting stent of the posterior descending coronary artery. Patient started on metolazone, Aldactone, Coreg, lisinopril, potassium supplementation and Lasix. Patient will need LifeVest prior to discharge. Patient is also being treated for COPD with long-term tobacco use, he is on a tapering dose of prednisone. Continue Spiriva, Symbicort and bronchodilators. Patient's diabetes mellitus was also uncontrolled, patient started on metformin, Levemir was increased. //Acute systolic CHF -on Lasix 40 mg 3 times a day, switched to p.o. Cardiology following. Continue metolazone 5 mg daily, Aldactone 25 mg daily, Coreg 12.5 mg twice a day, lisinopril 10 mg daily, Potassium chloride 20 mEq 3 times a day. Repeat echocardiogram as outpatient in 3-4 months, and consideration for AICD placement if EF remains less than 35%. May benefit to get LifeVest prior to discharge, case management is aware. //Bilateral pleural effusion-repeat chest x-ray showed new consolidative changes on the left base, no leukocytosis, pulmonary clinical picture improving , afebrile, WBC increased but also on steroids. Recheck chest x-ray with lateral decubitus, rule out need for thoracentesis. = 03/17. Chest x-ray 03/16 with resolution of pleural effusion. //Atypical pleuritic chest pain We will check d-dimer. Echocardiogram with increased pulmonary pressures. Need to rule out pulmonary embolism. //Suspect undiagnosed COPD secondary to long history of tobacco abuse -Tobacco cessation advised, continue prednisone, decrease to 10 mg daily, taper fast, Spiriva, Symbicort, duo nebs. Oxygen support. //Type 2 Diabetes Mellitus, uncontrolled- increased levemir to 16 units, BG is now better, Accu-Cheks, medium dose sliding scale. BG is in the 100s. Hemoglobin A1c 12.8. Start metformin, kidney function stable. Consider Jiardiance on discharge = Glucose improving with tapering of steroids. //DVT prophylaxis -Heparin 5000 units subcu every 8 hours Discussed Condition With: patient, nurse Discharge Planning: Discharge pending LifeVest and cardiology clearance. = D-dimer pending to rule out pulmonary embolism.
--- NOTE | 2018-03-17 09:28 | P.DS ---
Date of admission: 03/13/18 01:00 Primary care physician: No Primary Care Physician Brief History from admission: Mr. López is a 52-year-old male with a history of congestive heart failure, diabetes mellitus, hypertension, and pancreatitis who presented to the emergency room in [place] for evaluation of shortness of breath and lower extremity swelling. He also complained of chest pain. The patient was found to have congestive heart failure on chest x-ray with a BNP of 1700 and troponin I elevation of 0 of 0.48 and was admitted to [facility] for further evaluation. The patient is seen on the nursing unit. He reports a 3-4-day history of shortness of breath accompanied by chest pressure. He denies diaphoresis, nausea, palpitations, or radiating chest discomfort. He reports worsening of chest discomfort with cough. He has a congested cough noted during examination. He reports feeling extremely short of breath. He states the shortness of breath was relieved initially with IV Lasix but he feels that he is starting to get some increase in his breathing difficulty. DS: Diagnosis - Discharge Diagnosis (1) Acute systolic CHF (congestive heart failure) Status: Acute (2) Non-ST elevated myocardial infarction Status: Acute DS: Medications - Discharge Medications Prescriptions: aspirin 81 mg PO DAILY #30 tab budesonide-formoterol [Symbicort] 2 puff INH BID #1 g insulin detemir U-100 [Levemir U-100 Insulin] 16 unit SUBCUT HS #30 dose metformin [Glucophage] 850 mg PO BIDPC #60 tab prasugrel [Effient] 10 mg PO DAILY #30 tab prednisone 10 mg PO DAILY #4 tab tiotropium bromide [Spiriva with HandiHaler] 18 mcg INH DAILY #1 inh DS: Summary Hospital Course: Mr. López is a 52-year-old male with a history of congestive heart failure, diabetes mellitus, hypertension, and pancreatitis who presented to the emergency room in [place] for evaluation of shortness of breath and lower extremity swelling. Chest x-ray showed evidence of congestive heart failure. CT scan of the chest ruled out PE, showed bilateral pleural effusions. Patient was admitted for acute systolic congestive heart failure, started on diuretics. Echocardiogram showed ejection fraction of 20%. Cardiac catheterization done 03/14/2018, showed nonischemic cardiomyopathy, status post PCI with drug- eluting stent of the posterior descending coronary artery. Patient started on metolazone, Aldactone, Coreg, lisinopril, potassium supplementation and Lasix. Patient will need LifeVest prior to discharge. Patient is also being treated for COPD with long-term tobacco use, he is on a tapering dose of prednisone. Continue Spiriva, Symbicort and bronchodilators. Patient's diabetes mellitus was also uncontrolled, patient started on metformin, Levemir was increased. //Acute systolic CHF -on Lasix 40 mg 3 times a day, switched to p.o. Cardiology following. Continue metolazone 5 mg daily, Aldactone 25 mg daily, Coreg 12.5 mg twice a day, lisinopril 10 mg daily, Potassium chloride 20 mEq 3 times a day. Repeat echocardiogram as outpatient in 3-4 months, and consideration for AICD placement if EF remains less than 35%. May benefit to get LifeVest prior to discharge, case management is aware. //Bilateral pleural effusion-repeat chest x-ray showed new consolidative changes on the left base, no leukocytosis, pulmonary clinical picture improving , afebrile, WBC increased but also on steroids. Recheck chest x-ray with lateral decubitus, rule out need for thoracentesis. = 03/17. Chest x-ray 03/16 with resolution of pleural effusion. //Atypical pleuritic chest pain CTA pulmonary angiogram negative on admission. //Suspect undiagnosed COPD secondary to long history of tobacco abuse -Tobacco cessation advised, continue prednisone, decrease to 10 mg daily, taper fast, Spiriva, Symbicort, duo nebs. Oxygen support. //Type 2 Diabetes Mellitus, uncontrolled- increased levemir to 16 units, BG is now better, Accu-Cheks, medium dose sliding scale. BG is in the 100s. Hemoglobin A1c 12.8. Start metformin, kidney function stable. Consider Jiardiance on discharge = Glucose improving with tapering of steroids. //DVT prophylaxis -Heparin 5000 units subcu every 8 hours Discussed Condition With: patient, nurse Discharge Planning: Discharge pending LifeVest and cardiology clearance. = D-dimer pending to rule out pulmonary embolism. - Time Spent with Patient Total time spent providing and/or coordinating discharge services: Greater than 30 minutes - Quality: VTE Deep Vein Thrombosis/Pulmonary Embolism Present on Admission: No Exam Vital signs: Vital Signs 03/16/18 10:00 03/16/18 11:00 03/16/18 12:00 Temperature 97.9 F Pulse Rate 105 H 93 H 90 Respiratory Rate 18 Blood Pressure 77/59 L Pulse Oximetry 97 03/16/18 12:46 03/16/18 14:00 03/16/18 14:40 Temperature Pulse Rate 94 H 90 91 H Respiratory Rate Blood Pressure Pulse Oximetry 03/16/18 15:54 03/16/18 16:00 03/16/18 17:00 Temperature 98.1 F Pulse Rate 92 H 88 95 H Respiratory Rate 18 Blood Pressure 96/74 L Pulse Oximetry 97 03/16/18 18:00 03/16/18 19:00 03/16/18 20:00 Temperature 97.4 F L Pulse Rate 94 H 93 H 92 H Respiratory Rate 18 Blood Pressure 107/71 Pulse Oximetry 95 03/16/18 21:00 03/16/18 22:00 03/16/18 23:00 Temperature Pulse Rate 94 H 92 H 93 H Respiratory Rate Blood Pressure Pulse Oximetry 03/17/18 00:00 03/17/18 01:00 03/17/18 02:00 Temperature Pulse Rate 93 H 88 92 H Respiratory Rate 18 Blood Pressure 103/77 Pulse Oximetry 98 03/17/18 03:00 03/17/18 04:00 03/17/18 05:00 Temperature Pulse Rate 91 H 88 91 H Respiratory Rate 18 Blood Pressure 99/73 L Pulse Oximetry 98 03/17/18 06:00 03/17/18 08:00 Temperature 97.3 F L Pulse Rate 94 H 90 Respiratory Rate 18 Blood Pressure 91/72 L Pulse Oximetry 98 Intake & Output 03/16/18 03/17/18 03/17/18 18:59 06:59 18:59 Intake Total 720 / 720 240 / 240 Output Total 1300 / 1300 Balance -580 / -580 240 / 240 Weight 67.1 kg Intake: Oral 720 / 720 240 / 240 Output: Urine 1300 / 1300 Other: # Voids 3 Date of Last Bowel Movement 03/16/18 03/17/18 # Bowel Movements 1 1 Results Procedures completed during hospitalization: NCardiac catheterization done 03/14/2018, showed nonischemic cardiomyopathy, status post PCI with drug-eluting stent of the posterior descending coronary artery.one Labs on day of discharge: Labs from last 24 hours 03/17/18 03/16/18 03/16/18 08:11 20:53 17:17 POC Glucose 99 341 H 370 H 03/16/18 12:13 POC Glucose 256 H - Impressions ITS Impressions Chest CTA 03/13/18 00:00 CONCLUSION: 1. No evidence of pulmonary emboli. 2. Cardiomegaly, bilateral pleural effusions and mild hazy airspace opacity in the dependent portions along bases. The findings most characteristic of mild congestive heart failure. Chest X-Ray 03/16/18 10:50 CONCLUSION: No acute cardiopulmonary disease. Discharge Plan - Discharge Disposition Patient Disposition: Discharge Home - Discharge Condition Condition: Good - Discharge Order Discharge Orders: Discharge Order (Routine); Ordered 03/17/18 Ordered By: Shaheen Tran - Discharge Details Anticipated Discharge Date: 03/17/18 Discharge Comment: OK for DC when he has lifevest, lifevest training - Physicians Team Primary Care Provider: Primary Care Christine,Sarahy Attending Provider: Shaheen Tran Other Providers: Barney Nails MD ; Sulfagenix,Insurance - Rxs /Orders / Referrals /Forms Prescriptions: New albuterol sulfate [Ventolin HFA] 90 mcg/actuation HFA aerosol inhaler 1 inh INHALATION Q6H PRN (Reason: shortness of breath) Qty: 8 RF: 0 aspirin 81 mg Tablet,Chewable 81 mg PO DAILY Qty: 30 RF: 0 budesonide-formoterol [Symbicort] 160-4.5 mcg/actuation Hfa Aerosol Inhaler 2 puff INH BID Qty: 1 RF: 0 carvedilol [Coreg] 12.5 mg Tablet 12.5 mg PO BID Qty: 60 RF: 0 furosemide 40 mg Tablet 40 mg PO BID@0900,1800 30 Days RF: 0 insulin detemir U-100 [Levemir U-100 Insulin] 100 unit/mL Solution 16 unit subcut HS Qty: 30 RF: 0 lisinopril 2.5 mg Tablet 2.5 mg PO DAILY 30 Days Qty: 30 RF: 0 metformin [Glucophage] 850 mg Tablet 850 mg PO BIDPC Qty: 60 RF: 0 potassium chloride 20 mEq Tablet,Er Particles/Crystals 20 meq PO BID 30 Days Qty: 60 RF: 0 prasugrel [Effient] 10 mg Tablet 10 mg PO DAILY Qty: 30 RF: 0 prednisone 10 mg Tablet 10 mg PO DAILY Qty: 4 RF: 0 spironolactone [Aldactone] 25 mg Tablet 12.5 mg PO DAILY 30 Days Qty: 15 RF: 0 tiotropium bromide [Spiriva with HandiHaler] 18 mcg Capsule, W/Inhalation Device 18 mcg INH DAILY Qty: 1 RF: 0 Continue duloxetine 30 mg Capsule,Delayed Release(Dr/Ec) 30 mg PO DAILY linaclotide [Linzess] 145 mcg Capsule 145 mcg PO DAILY Discontinued furosemide 20 mg Tablet 40 mg PO DAILY lisinopril 20 mg Tablet 20 mg PO DAILY Ambulatory Orders / Order Sets / DME: Defibrillator Jacket (Routine) Location: Determined by Patient Ordered By: Barney Nails Referrals: Primary Care Sarahy King [Primary Care Provider] - See Instructions Barney Nails MD [Physician] - See Instructions - Discharge Instructions Patient Printed Instructions: Heart Catheterization (DC)
[2018-03-17 10:27] LABS: Amphetamine Screen,Urine Neg (Neg); Barbiturate Screen,Urine Neg (Neg); Cannabinoid Screen,Urine Neg (Neg); Cocaine Screen,Urine Neg (Neg); Opiate Screen,Urine Neg (Neg)
[2018-03-17 10:43] LABS: Carbon Dioxide 34.5 meq/L (21.0-32.0); Potassium 3.9 meq/L (3.5-5.1)
== END 2018-03-17 17:38 | disposition home or self-care (01) ==
LOC: NEDDLT 03-13 00:50 → N07 03-13 01:00 → HCIS 03-14 14:18
PROVIDERS: ADMIT Internal Medicine; ATTEND Internal Medicine

== ENCOUNTER 2018-04-01 18:01 | Observation (INO) ==
[2018-04-01] MEDS ORDERED: Acetaminophen 325 MG Tablet PO PRN (22:49)
[2018-04-01] MEDS ORDERED: Bisacodyl 10 MG Supp RECTAL PRN (22:49)
[2018-04-01] MEDS ORDERED: Morphine Inj 4 MG/ML Vial IV.PUSH ONE (23:40)
[2018-04-01] MEDS ORDERED: Dextrose 50% in Water 50 ML Vial IV.PUSH PRN (23:41)
[2018-04-01] MEDS ORDERED: LINZESS 145 MG PO PRN (23:42)
--- NOTE | 2018-04-02 00:08 | XR ---
EXAM DATE: 04/02/2018 12:03 AM EST AGE/SEX: 52 years / Male INDICATIONS: Patient complains of upper abdominal pain. CLINICAL DATA: This is the patient's initial encounter. Patient reports that signs and symptoms have been present for 2 days and indicates a pain score of 8/10. MEDICAL/SURGICAL HISTORY: None. None. COMPARISON: No prior exams available for comparison. FINDINGS: The abdominal bowel gas pattern is normal. No abnormal masses or organomegaly is seen. Clips are s een in the right upper quadrant presumably from prior cholecystectomy. The osseous structures are unr emarkable. Calcifications are seen at the vas deferens. CONCLUSION: No acute abnormality. Electronically signed by: Jean Rodrigues MD Board Certified Radiologist 04/02/2018 12:07 AM EST
[2018-04-02 03:29] LABS: Troponin I 0.33 ng/mL (0.02-0.05)
[2018-04-02 06:20] LABS: Baso # (Auto) 0.1 th/mm3 (0.0-0.2); Baso % (Auto) 0.8 % (0.0-2.0); Eos # (Auto) 0.2 th/mm3 (0.0-0.4); Hematocrit 51.2 % (39.0-51.0); Lymph # (Auto) 1.7 th/mm3 (1.0-4.8); Lymph % (Auto) 21.8 % (9.0-44.0); Mean Corpuscular HGB Conc 33.2 % (32.0-36.0); Mean Corpuscular Volume 93.5 fL (80.0-100.0); Mean Platelet Volume 9.8 fL (7.0-11.0); Mono # (Auto) 0.8 th/mm3 (0.0-0.9); Mono % (Auto) 10.8 % (0.0-8.0); Neut # (Auto) 4.8 th/mm3 (1.8-7.7); Neut % (Auto) 64.6 % (16.0-70.0); Platelet Count 117 th/mm3 (150-450); Red Blood Count 5.47 mil/mm3 (4.50-5.90); Red Cell Distribution Width 12.9 % (11.6-17.2); White Blood Count 7.6 th/mm3 (4.0-11.0)
[2018-04-02 06:30] LABS: Chloride 102 meq/L (98-107); Potassium 3.7 meq/L (3.5-5.1); Sodium 136 meq/L (136-145)
[2018-04-02 06:33] LABS: Calcium 8.7 mg/dL (8.5-10.1)
[2018-04-02 06:34] LABS: Anion Gap 7 meq/L (5-15); Blood Urea Nitrogen 20 mg/dL (7-18); Carbon Dioxide 26.6 meq/L (21.0-32.0); Glucose,Random 276 mg/dL (74-106)
[2018-04-02 06:37] LABS: Glomerular Filtration Rate Greater Than 89 mL/min (>89)
[2018-04-02 06:42] LABS: Troponin I 0.37 ng/mL (0.02-0.05)
[2018-04-02 06:46] LABS: Creatine Kinase 38 U/L (39-308)
[2018-04-02] MEDS: Insulin NovoLOG Aspart Correctional Sugar Inj SQ SCH ×4 (07:55→20:45)
[2018-04-02] MEDS: Lisinopril 10 MG Tablet PO SCH (09:32)
[2018-04-02] MEDS: Carvedilol 12.5 MG Tablet PO SCH ×2 (09:32→20:40)
[2018-04-02] MEDS: Spironolactone 25 MG Tablet PO SCH (09:32)
--- NOTE | 2018-04-02 09:49 | ECG ---
Date Performed: 04/02/2018 Time Performed: 02:36:00 PTAGE: 52 years EKG: Sinus rhythm LEFT ATRIAL ENLARGEMENT MARKED LEFT AXIS DEVIATION NONSPECIFIC T-WAVE ABNORMALITY ABNORMAL ECG NO PREVIOUS TRACING DOCTOR: Barney Nails Interpretating Date/Time 04/02/2018 09:47:55
--- NOTE | 2018-04-02 10:18 | ECG ---
Date Performed: 04/02/2018 Time Performed: 09:58:12 PTAGE: 52 years EKG: Sinus rhythm LEFT ATRIAL ENLARGEMENT MARKED LEFT AXIS DEVIATION ABNORMAL ECG PREVIOUS TRACING : 04/02/2018 02.36 DOCTOR: Barney Nails Interpretating Date/Time 04/02/2018 10:17:38
[2018-04-02] MEDS ORDERED: Diatrizoate Meglum/Diatrizoate Sod Liq 9 ML UDC PO ONE (15:21)
[2018-04-02] MEDS ORDERED: Naloxone Inj 0.4 MG/ML Vial IV.PUSH PRN (15:22)
[2018-04-02] MEDS ORDERED: HYDROmorphone PF Inj 0.5 MG/0.5 ML Syringe IV.PUSH PRN (15:22)
[2018-04-02] MEDS ORDERED: HYDROmorphone PF Inj 2 MG/ML Vial IV.PUSH PRN (15:45)
[2018-04-02] MEDS: HYDROmorphone PF Inj 1 MG/ML Ampul IV.PUSH PRN ×3 (16:03→23:39)
[2018-04-02] MEDS: Potassium Chloride Inj 10 MEQ in Sod Chloride 0.9% Inj 1,000 ML IV.CONT SCH (16:24)
[2018-04-02] MEDS: Lipase/Protease/Amylase 24/76/120 DR Capsule PO SCH (17:04)
--- NOTE | 2018-04-02 17:07 | MB ---
cc: Julio Cesar Wharton MD DATE: 04/02/2018 REASON FOR CONSULTATION: Atypical chest pain. HISTORY OF PRESENT ILLNESS: The patient is a pleasant 52-year-old gentleman with a history of coronary artery disease, status post a stent to the PDA about 2 weeks ago, as well as a severe cardiomyopathy with ejection fraction of less than 20%. The patient also has a history of chronic pancreatitis. The patient presents with epigastric pain and tenderness, which was quite severe until he received Dilaudid today. He says the pain is different than his cardiac chest pain, which was more left upper chest at his last admission. Now that he has received Dilaudid, he says he is feeling great. No current chest pain, shortness of breath, lightheadedness, dizziness, syncope. ____ PAST MEDICAL HISTORY: As above. CURRENT MEDICATIONS: 1. Carvedilol 12.5 mg b.i.d. 2. Lasix 40 mg IV b.i.d. 3. Prinivil 10 mg daily. 4. Effient 10 mg daily. 5. Aldactone 25 mg daily. PHYSICAL EXAMINATION: VITAL SIGNS: Afebrile, pulse 90, respiratory rate 20, BP 131/93, saturating 98 on room air. GENERAL: He is a very pleasant gentleman who is currently wearing a LifeVest in no distress. NECK: No JVD. LUNGS: Clear to auscultation bilaterally. CARDIOVASCULAR: Regular rate and rhythm. No significant murmurs appreciated. ABDOMEN: Has perhaps very mild epigastric tenderness that the patient says that since receiving Dilaudid, he feels significantly improved. EXTREMITIES: No edema. LABORATORY DATA: Sodium 136, potassium 3.7, chloride 102, bicarbonate 26.6, BUN 20, creatinine 0.67, glucose 245. BNP is 854. Troponins are essentially flat at 0.33, 0.37. DIAGNOSTIC DATA: EKG shows sinus rhythm with no significant ST or T-wave changes. IMPRESSION: 1. Atypical chest pain. Patient has very atypical chest pain that is likely related to his chronic pancreatitis given its somewhat reproducible nature and its complete resolution with Dilaudid. He says it is significantly different than his past anginal pain. Nonetheless, given his abnormal troponins, I will have him undergo a nuclear stress test tomorrow. 2. Cardiomyopathy. The patient has a severe cardiomyopathy with known coronary disease. He has a LifeVest in place and is on an GIGI inhibitor and carvedilol. He apparently will be seeing Dr. Wing Linh Faustin as an outpatient and consideration towards changing his GIGI to Entresto can be made at that point in time. If his nuclear stress test is nonischemic, I will sign off and he can followup with Dr. Faustin as an outpatient. Thank you again for the opportunity to participate in this patient's care. MD BASILIO Rico/berenice , 04:30 PM , 04:37 PM
--- NOTE | 2018-04-02 18:17 | P.HPIM ---
History of Present Illness Primary Care Physician: No Primary Care Physician History of Present Illness: 52-year-old male with a history of diabetes mellitus, recurrent pancreatitis coronary artery disease status post catheterization with stenting to the PDA 2 weeks ago, severe cardiomyopathy with ejection fraction of less than 20% on LifeVest who presents with a 10-day history of constant sharp epigastric pain rating to the back, as well as a different dull left sided chest pain which is nonradiating. He reports nausea and nonbloody vomiting. Denies any fevers or chills. He says this episode feels like recurrent pancreatitis. Patient says he had some difficulty picking up his medications after discharge from the hospital 2 weeks ago and did not start his anticoagulation until 4 days after discharge. Review of Systems All other systems reviewed negative except as stated in HPI PMFSH - History History Provided By: Patient - Medical History Medical History: Medical History (Last Reviewed 04/02/18 @ 18:15 by Shaheen Tran MD) CHF (congestive heart failure) Diabetes History of Holter monitoring Hypertension Pancreatitis - Surgical History Surgical History: Surgical History (Last Reviewed 04/02/18 @ 18:15 by Shaheen Tran MD) History of ankle surgery History of cholecystectomy History of spinal fusion - Family History Family History: Family History (Last Reviewed 04/02/18 @ 18:15 by Shaheen Tran MD) Father Family history of myocardial infarction - Social History I have reviewed the patient's Social History: Yes - Tobacco History Second Hand Smoke Exposure: No Tobacco Use In Past 30 Days: Yes (states he quit 2 weeks ago.) Smoking Status: Former smoker Tobacco Type: Cigarettes - Alcohol History How Often Do You Have a Drink Containing Alcohol: Monthly or less - Substance Use History Substance History: No History of Abuse - Travel History Recent Travel in the [place] Within the Last 8 Weeks: No Recent Travel Out of the Country Within the Last 8 Weeks: No Medications and Allergies Active Medications: Active Medications Acetaminophen (Tylenol) 650 mg PO Q4H PRN PRN Reason: Temp > 100.4 Hydrocodone Bitart/Acetaminophen ([place] 5/325) 1 tab PO Q6H PRN PRN Reason: PAIN SCALE 1 TO 10 Last Admin: 04/02/18 10:33 Dose: 1 tab Al Hydroxide/Mg Hydroxide (Milk Of Magnesia Liq) 30 ml PO Q12H PRN PRN Reason: Mild Constipation Lipase/Protease/Amylase (Jone Olievra 24/76/120) 2 cap PO TID [facility] Last Admin: 04/02/18 17:04 Dose: Not Given Aspirin (Aspirin Chew) 81 mg PO DAILY [facility] Last Admin: 04/02/18 09:32 Dose: 81 mg Bisacodyl (Dulcolax Supp) 10 mg RECTAL DAILY PRN PRN Reason: SEVERE CONSITIPATION Carvedilol (Coreg) 12.5 mg PO BID [facility] Last Admin: 04/02/18 09:32 Dose: 12.5 mg Dextrose (D50w Vial) 50 ml IV.PUSH UNSCH PRN PRN Reason: PER HYPOGLYCEMIA PROTOCOL Duloxetine HCl (Cymbalta) 30 mg PO DAILY [facility] Last Admin: 04/02/18 09:32 Dose: 30 mg Furosemide (Lasix Inj) 40 mg IV.PUSH BID@0900,1800 [facility] Last Admin: 04/02/18 17:16 Dose: 40 mg Glucagon (Glucagon Inj) 1 mg OTHER PRN PRN PRN Reason: for Hypoglycemia Protocol Hydromorphone HCl (Dilaudid Pf Inj) 0.5 mg IV.PUSH Q3H PRN PRN Reason: PAIN 3-5; IF UABLE TO TAKE PO Hydromorphone HCl (Dilaudid Pf Inj) 1 mg IV.PUSH Q3H PRN PRN Reason: PAIN 6-10;IF UNABLE TO TAKE PO Last Admin: 04/02/18 16:03 Dose: 1 mg Potassium Chloride 10 meq/ (Sodium Chloride) 1,005 mls @ 60 mls/hr IV.CONT .[id number] [facility] Last Admin: 04/02/18 16:24 Dose: 60 mls/hr Insulin Aspart (Novolog Insulin Correctional Sugar Inj) 0 unit SQ ACHS [facility]; Protocol Last Admin: 04/02/18 17:16 Dose: 7 unit Lactulose (Lactulose Liq) 30 ml PO DAILY PRN PRN Reason: SEVERE CONSITIPATION Lisinopril (Prinivil) 10 mg PO DAILY [facility] Last Admin: 04/02/18 09:32 Dose: 10 mg Naloxone HCl (Narcan Inj) 0.4 mg IV.PUSH UNSCH PRN PRN Reason: SEE LABEL COMMENTS Ondansetron HCl (Zofran Inj) 4 mg IV.PUSH Q6H PRN PRN Reason: NAUSEA OR VOMITING Last Admin: 04/02/18 13:21 Dose: 4 mg Pt Own Linzess 145 (Mg Cap) 0 each PO DAILY PRN PRN Reason: Constipation Potassium Chloride (K-Dur) 20 meq PO BID [facility] Last Admin: 04/02/18 09:32 Dose: 20 meq Prasugrel (Effient) 10 mg PO DAILY [facility] Last Admin: 04/02/18 09:32 Dose: 10 mg Sennosides (Senokot) 17.2 mg PO Q12H PRN PRN Reason: Moderate Constipation Sodium Chloride (Ns Flush) 2 ml IV.FLUSH PRN PRN PRN Reason: FLUSH AFTER USING IV ACCESS Last Admin: 04/02/18 04:05 Dose: 2 ml Sodium Chloride (Ns Flush) 2 ml IV.FLUSH BID [facility] Last Admin: 04/02/18 09:32 Dose: 2 ml Spironolactone (Aldactone) 25 mg PO DAILY [facility] Last Admin: 04/02/18 09:32 Dose: 25 mg Allergies Allergy/AdvReac Type Severity Reaction Status Date / Time No Known Allergies Allergy Verified 04/01/18 23:30 Home Medications Medication Instructions Recorded Confirmed Type duloxetine 30 mg PO DAILY 03/12/18 04/01/18 History linaclotide [Linzess] 145 mcg PO DAILY PRN 03/12/18 04/01/18 History insulin lispro [Humalog U-100 40 unit SUBCUT BID 04/01/18 04/01/18 History Insulin] lisinopril 10 mg PO DAILY 04/01/18 04/01/18 History metformin [Glucophage] 850 mg PO BIDPC 04/01/18 04/01/18 History spironolactone [Aldactone] 25 mg PO DAILY 04/01/18 04/01/18 History Exam Vital signs: Vital Signs 04/01/18 22:50 04/02/18 00:00 04/02/18 04:00 Temperature 97.6 F 98.7 F Pulse Rate 92 H 101 H 99 H Respiratory Rate 18 18 Blood Pressure 126/84 126/80 Pulse Oximetry 96 96 04/02/18 08:00 04/02/18 08:20 04/02/18 12:00 Temperature 98.8 F 96.1 F L Pulse Rate 98 H 98 H 90 Respiratory Rate 20 20 Blood Pressure 131/96 H 131/93 H Pulse Oximetry 97 98 04/02/18 16:00 Temperature 96.1 F L Pulse Rate 90 Respiratory Rate 20 Blood Pressure 112/79 Pulse Oximetry 99 Intake & Output 04/01/18 04/02/18 04/02/18 18:59 06:59 18:59 Intake Total 240 / 240 Output Total 1000 / 1000 Balance -760 / -760 Weight 66.5 kg Intake: Oral 240 / 240 Output: Urine 1000 / 1000 Other: Date of Last Bowel Movement 03/30/18 Weight On Admission 66.5 kg Narrative: GENERAL: Patient lying in bed. Appears uncomfortable. Alert and oriented x3. SKIN: Warm and dry. HEAD: Atraumatic. Normocephalic. EYES: Pupils equal and round. No scleral icterus. No injection or drainage. ENT: No nasal bleeding or discharge. Mucous membranes pink and moist. NECK: Trachea midline. No JVD. CARDIOVASCULAR: Regular rate and rhythm. RESPIRATORY: No accessory muscle use. Clear to auscultation. Breath sounds equal bilaterally. GASTROINTESTINAL: Abdomen soft, tender to minimal palpation.. Hepatic and splenic margins not palpable. MUSCULOSKELETAL: Extremities without clubbing, cyanosis, or edema. No obvious deformities. NEUROLOGICAL: Awake and alert. No obvious cranial nerve deficits. Motor grossly within normal limits. Five out of 5 muscle strength in the arms and legs. Normal speech. PSYCHIATRIC: Appropriate mood and affect; insight and judgment normal. Results - Labs CBC & Chem 7: 04/02/18 05:00 04/02/18 05:00 Labs: Short CBC 04/02/18 Range/Units 05:00 WBC 7.6 (4.0-11.0) th/mm3 Hgb 17.0 (13.0-17.0) gm/dL Hct 51.2 H (39.0-51.0) % Plt Count 117 L (150-450) th/mm3 BMP 04/02/18 05:00 Sodium 136 Potassium 3.7 Chloride 102 Carbon Dioxide 26.6 BUN 20 H Creatinine 0.67 Calcium 8.7 Cardiac Enzymes 04/02/18 04/02/18 Range/Units 03:00 05:00 Total Creatine Kinase 63 38 L (39-308) U/L Troponin I 0.33 H 0.37 H (0.02-0.05) ng/mL - Imaging Impressions Abdomen X-Ray 04/01/18 00:00 CONCLUSION: No acute abnormality. Caprini VTE Risk Assessment Caprini VTE Risk Assessment: No/Low Risk (score <= 1) Caprini Risk Assessment Model: Point Value = 1 Point Value = 2 Point Value = 3 Point Value = 5 Age 41-60 Minor surgery BMI > 25 kg/m2 Swollen legs Varicose veins or History of unexplained or recurrent spontaneous Oral contraceptives or hormone replacement Sepsis (< 1 month) Serious lung disease, including pneumonia (< 1 month) Abnormal pulmonary function Acute myocardial infarction Congestive heart failure (< 1 month) History of inflammatory bowel disease Medical patient at bed rest Age 61-74 Arthroscopic surgery Major open surgery (> 45 min) Laparoscopic surgery (> 45 min) Malignancy Confined to bed (> 72 hours) Immobilizing plaster cast Central venous access Age >= 75 History of VTE Family history of VTE Factor V Leiden Prothrombin [id number] Lupus anticoagulant Anticardiolipin antibodies Elevated serum homocysteine Heparin-induced thrombocytopenia Other congenital or acquired thrombophilia Stroke (< 1 month) Elective arthroplasty Hip, pelvis, or leg fracture Acute spinal cord injury (< 1 month) Prophylaxis Regimen: Total Risk Factor Score Risk Level Prophylaxis Regimen 0-1 Low Early ambulation 2 Moderate Order ONE of the following: *Sequential Compression Device (SCD) *Heparin 5000 units SQ BID 3-4 Higher Order ONE of the following medications: *Heparin 5000 units SQ TID *Enoxaparin/Lovenox 40 mg SQ daily (WT < 150 kg, CrCl > 30 mL/min) *Enoxaparin/Lovenox 30 mg SQ daily (WT < 150 kg, CrCl > 10-29 mL/min) *Enoxaparin/Lovenox 30 mg SQ BID (WT < 150 kg, CrCl > 30 mL/min) AND/OR *Sequential Compression Device (SCD) 5 or more Highest Order ONE of the following medications: *Heparin 5000 units SQ TID (Preferred with Epidurals) *Enoxaparin/Lovenox 40 mg SQ daily (WT < 150 kg, CrCl > 30 mL/min) *Enoxaparin/Lovenox 30 mg SQ daily (WT < 150 kg, CrCl > 10-29 mL/min) *Enoxaparin/Lovenox 30 mg SQ BID (WT < 150 kg, CrCl > 30 mL/min) AND *Sequential Compression Device (SCD) Assessment and Plan - Plan //Acute atypical chest pain //Troponin elevation -EKG with no acute findings. Troponin elevation to 0.3 consistent with previous admission. -Due to patient not obtaining Effient until 4 days after discharge, there is possibility of in-stent thrombosis. -Continue home medications. -EKG reviewed. Consult cardiology. Plan for stress test. Appreciate cardiology assistance. //Acute abdominal pain. /Suspected recurrent pancreatitis Lipase not elevated, however pancreatitis reported to be recurrent. Will request old records from [place] -Patient requesting Dilaudid. Reports previous history of recurrent pancreatitis in [place]. -The possible patient could be pain med seeking, however due to epigastric tenderness on exam, will obtain abdominal CT. -Patient requesting start Creon 3 times daily. Will plan to start when we start back on diet. -Make n.p.o. Difficult situation with fluids. BNP is elevated in the 800s, will put on low-dose IV fluids and continue home cardiac meds. //Chronic diabetes. Glucose is elevated to 200. Patient will be n.p.o. Start Levemir. Insulin sliding scale //Depression. no SI. Continue home medication. Discussed Condition With: patient, nurse. H&P: Quality - VTE Deep Vein Thrombosis/Pulmonary Embolism Present on Admission: No
[2018-04-02 18:43] LABS: Amphetamine Screen,Urine Neg (Neg); Barbiturate Screen,Urine Neg (Neg); Cannabinoid Screen,Urine Neg (Neg)
[2018-04-02 18:44] LABS: Cocaine Screen,Urine Neg (Neg)
[2018-04-02 18:56] LABS: Opiate Screen,Urine Neg (Neg)
--- NOTE | 2018-04-02 20:37 | CT ---
EXAM DATE: 04/02/2018 8:29 PM EST AGE/SEX: 52 years / Male INDICATIONS: Pancreatitis. Abdominal pain. CLINICAL DATA: This is the patient's subsequent encounter. Patient reports that signs and symptoms h ave been present for 2 days and indicates a pain score of 8/10. MEDICAL/SURGICAL HISTORY: Congestive heart failure. Diabetes. Hypertension. Pancreatitis. Cholecystectomy. Spinal fusion. ORAL CONTRAST: Prescribed oral contrast ingested. RADIATION DOSE: 16.30 CTDI (mGy) COMPARISON: No prior exams available for comparison. TECHNIQUE: Multiple contiguous axial images were obtained through the abdomen following bolus infusi on of 93 ml Omnipaque 350 (iohexol) nonionic water-soluble contrast as a single exam dose. Prescrib ed oral contrast ingested. Using automated exposure control and adjustment of the mA and/or kV accor ding to patient size, radiation dose was kept as low as reasonably achievable to obtain optimal diagn ostic quality images. DICOM format image data is available electronically for review and comparison. FINDINGS: Lower Lungs: The visualized lower lungs are clear. Liver: The liver has a homogeneous density without space-occupying lesion. There is no dilation of th e biliary tree. The patient is status post cholecystectomy. There is mild diffuse hepatic steatosis. Spleen: Homogeneous density without enlargement. Pancreas: Unremarkable without mass or calcification. Kidneys: Normal in size and shape. No evidence of mass or hydronephrosis. Adrenal Glands: Unremarkable. Aorta/Retroperitoneum: The aorta is grossly unremarkable without aneurysmal dilation. No paraaortic or retrocrural adenopathy. Bowel/Mesentery: No oral contrast was given limiting the exam. The visualized portion of mesentery a ppear unremarkable with moderate amount of stool in the transverse colon. There is no free air or flu id. Abdominal Wall: Intact. Bony Structures: Unremarkable. CONCLUSION: 1. The pancreas is unremarkable in appearance 2. Status post cholecystectomy. Electronically signed by: Bautista Shabazz MD Board Certified Radiologist 04/02/2018 8:35 PM EST
[2018-04-02] MEDS: Insulin Detemir Inj 1,000 UNIT/10 ML Vial SQ SCH (20:45)
[2018-04-03] MEDS: HYDROmorphone PF Inj 1 MG/ML Ampul IV.PUSH PRN ×6 (03:05→21:32)
[2018-04-03 06:44] LABS: Baso % (Auto) 0.2 % (0.0-2.0); Eos # (Auto) 0.2 th/mm3 (0.0-0.4); Eos % (Auto) 1.9 % (0.0-4.0); Hematocrit 47.2 % (39.0-51.0); Hemoglobin 16.2 gm/dL (13.0-17.0); Lymph # (Auto) 1.2 th/mm3 (1.0-4.8); Lymph % (Auto) 14.7 % (9.0-44.0); Mean Corpuscular HGB Conc 34.4 % (32.0-36.0); Mean Corpuscular Hemoglobin 31.6 pg (27.0-34.0); Mean Platelet Volume 9.3 fL (7.0-11.0); Mono # (Auto) 0.6 th/mm3 (0.0-0.9); Mono % (Auto) 7.7 % (0.0-8.0); Neut # (Auto) 6.2 th/mm3 (1.8-7.7); Neut % (Auto) 75.5 % (16.0-70.0); Platelet Count 113 th/mm3 (150-450); Red Blood Count 5.13 mil/mm3 (4.50-5.90); Red Cell Distribution Width 12.6 % (11.6-17.2); White Blood Count 8.2 th/mm3 (4.0-11.0)
[2018-04-03 06:53] LABS: Chloride 101 meq/L (98-107); Potassium 4.2 meq/L (3.5-5.1); Sodium 136 meq/L (136-145)
[2018-04-03 07:04] LABS: Albumin 2.8 g/dL (3.4-5.0); Anion Gap 9 meq/L (5-15); Calcium 8.7 mg/dL (8.5-10.1); Carbon Dioxide 25.9 meq/L (21.0-32.0); Glucose,Random 187 mg/dL (74-106); Magnesium 1.7 mg/dL (1.5-2.5)
[2018-04-03 07:05] LABS: Blood Urea Nitrogen 25 mg/dL (7-18)
[2018-04-03 07:07] LABS: Alanine Aminotransferase 36 U/L (12-78); Aspartate Aminotransferase 23 U/L (15-37); Glomerular Filtration Rate Greater Than 89 mL/min (>89)
[2018-04-03 07:08] LABS: Phosphorus 3.4 mg/dL (2.5-4.9)
[2018-04-03 07:09] LABS: Total Protein 6.8 g/dL (6.4-8.2)
[2018-04-03 07:10] LABS: Alkaline Phosphatase 77 U/L (45-117)
[2018-04-03] MEDS: Spironolactone 25 MG Tablet PO SCH (08:14)
[2018-04-03] MEDS: Lisinopril 10 MG Tablet PO SCH (08:14)
[2018-04-03] MEDS: Furosemide 40 MG Tablet PO SCH ×2 (08:14→17:24)
[2018-04-03] MEDS: Carvedilol 12.5 MG Tablet PO SCH ×2 (08:14→21:31)
[2018-04-03] MEDS: Lipase/Protease/Amylase 24/76/120 DR Capsule PO SCH ×3 (08:15→17:24)
[2018-04-03] MEDS: Insulin NovoLOG Aspart Correctional Sugar Inj SQ SCH ×4 (08:26→21:37)
[2018-04-03] MEDS: Insulin Detemir Inj 1,000 UNIT/10 ML Vial SQ SCH ×2 (08:32→21:36)
[2018-04-03] MEDS: Potassium Chloride Inj 10 MEQ in Sod Chloride 0.9% Inj 1,000 ML IV.CONT SCH (08:32)
[2018-04-03] MEDS ORDERED: Regadenoson Inj 0.4 MG/5 ML Syringe IV.PUSH ONE (10:13)
--- NOTE | 2018-04-03 11:39 | NM ---
EXAM DATE: 04/03/2018 11:22 AM EST AGE/SEX: 52 years / Male INDICATIONS:Angina. . Constant sharp epigastric pain radiating to back and left sided chest pain x10 days. Status post cardiac catheterization/stent in PDA 2 weeks ago. CLINICAL DATA: This is the patient's initial encounter. Patient reports that signs and symptoms have been present for 2 weeks and indicates a pain score of 5/10. MEDICAL/SURGICAL HISTORY: Congestive heart failure. Diabetes. Hypertension. Pancreatitis, co ronary artery disease. Cholecystectomy. Spinal fusion, cardiac catheterization/stent to PDA. COMPARISON: No prior exams available for comparison. DOSE: 8.7 mCi Tc 99m Myoview at rest 26.3 mCi [id number] at stress 0.4 mg Lexiscan STRESS SYMPTOMS: None. EJECTION FRACTION: 21 % TECHNIQUE: The patient underwent pharmacologic stress with infusion of prescribed dose. Continuous ECG tracing was monitored during stress. Gated SPECT imaging was performed after stress and conventi onal SPECT imaging was performed at rest. The examination was performed on a SPECT/CT scanner, both attenuation and non-corrected datasets were reviewed. FINDINGS: Distribution: The maximum perfused segment at stress is in the inferior septal wall. Left ventricle is enlarged. Perfusion Study: There is heterogeneous perfusion of the left ventricle. No definite reversible per fusion defect is identified. There is mild fixed decreased perfusion in the anterior wall near the le ft ventricle apex with apical thinning. Gated Study: There is global hypokinesia with reduced left ventricle ejection fraction. The ejectio n fraction is calculated at 21%. RISK CATEGORY: High (>3% Annual Mortality Rate) CONCLUSION: 1. Dilated left ventricle with mild fixed decreased perfusion in the anterior wall near the left [place] tricle apex. However, no definite reversible perfusion defect is identified. 2. Global hypokinesia with significantly reduced left ventricle ejection fraction calculated at 21%. Electronically signed by: Jean Brown MD Board Certified Radiologist 04/03/2018 11:38 AM EST
--- NOTE | 2018-04-03 12:04 | P.PNCA ---
Subjective Interval history: Pt feeling better, pain controlled. Medications and Allergies Active Medications: Active Medications Acetaminophen (Tylenol) 650 mg PO Q4H PRN PRN Reason: Temp > 100.4 Al Hydroxide/Mg Hydroxide (Milk Of Magnesia Liq) 30 ml PO Q12H PRN PRN Reason: Mild Constipation Lipase/Protease/Amylase (Jone Olivera 24/76/120) 2 cap PO TID [facility] Last Admin: 04/03/18 08:15 Dose: Not Given Aspirin (Aspirin Chew) 81 mg PO DAILY [facility] Last Admin: 04/03/18 08:13 Dose: 81 mg Bisacodyl (Dulcolax Supp) 10 mg RECTAL DAILY PRN PRN Reason: SEVERE CONSITIPATION Carvedilol (Coreg) 12.5 mg PO BID [facility] Last Admin: 04/03/18 08:14 Dose: 12.5 mg Dextrose (D50w Vial) 50 ml IV.PUSH UNSCH PRN PRN Reason: PER HYPOGLYCEMIA PROTOCOL Duloxetine HCl (Cymbalta) 30 mg PO DAILY [facility] Last Admin: 04/03/18 08:13 Dose: 30 mg Furosemide (Lasix) 40 mg PO BID@0900,1800 [facility] Last Admin: 04/03/18 08:14 Dose: 40 mg Glucagon (Glucagon Inj) 1 mg OTHER PRN PRN PRN Reason: for Hypoglycemia Protocol Hydromorphone HCl (Dilaudid Pf Inj) 0.5 mg IV.PUSH Q3H PRN PRN Reason: PAIN 3-5; IF UABLE TO TAKE PO Hydromorphone HCl (Dilaudid Pf Inj) 1 mg IV.PUSH Q3H PRN PRN Reason: PAIN 6-10;IF UNABLE TO TAKE PO Last Admin: 04/03/18 11:50 Dose: 1 mg Potassium Chloride 10 meq/ (Sodium Chloride) 1,005 mls @ 60 mls/hr IV.CONT .[id number] [facility] Last Admin: 04/03/18 08:32 Dose: 60 mls/hr Insulin Aspart (Novolog Insulin Correctional Sugar Inj) 0 unit SQ ACHS [facility]; Protocol Last Admin: 04/03/18 08:26 Dose: Not Given Insulin Detemir (Levemir Inj) 5 unit SQ BID [facility] Last Admin: 04/03/18 08:32 Dose: 5 unit Lactulose (Lactulose Liq) 30 ml PO DAILY PRN PRN Reason: SEVERE CONSITIPATION Lisinopril (Prinivil) 10 mg PO DAILY [facility] Last Admin: 04/03/18 08:14 Dose: 10 mg Naloxone HCl (Narcan Inj) 0.4 mg IV.PUSH UNSCH PRN PRN Reason: SEE LABEL COMMENTS Ondansetron HCl (Zofran Inj) 4 mg IV.PUSH Q6H PRN PRN Reason: NAUSEA OR VOMITING Last Admin: 04/03/18 11:50 Dose: 4 mg Pt Own Linzess 145 (Mg Cap) 0 each PO DAILY PRN PRN Reason: Constipation Potassium Chloride (K-Dur) 20 meq PO BID [facility] Last Admin: 04/03/18 08:13 Dose: 20 meq Prasugrel (Effient) 10 mg PO DAILY [facility] Last Admin: 04/03/18 08:13 Dose: 10 mg Sennosides (Senokot) 17.2 mg PO Q12H PRN PRN Reason: Moderate Constipation Sodium Chloride (Ns Flush) 2 ml IV.FLUSH PRN PRN PRN Reason: FLUSH AFTER USING IV ACCESS Last Admin: 04/02/18 04:05 Dose: 2 ml Sodium Chloride (Ns Flush) 2 ml IV.FLUSH BID [facility] Last Admin: 04/02/18 20:45 Dose: 2 ml Spironolactone (Aldactone) 25 mg PO DAILY [facility] Last Admin: 04/03/18 08:14 Dose: 25 mg Allergies Allergy/AdvReac Type Severity Reaction Status Date / Time No Known Allergies Allergy Verified 04/01/18 23:30 Home Medications Medication Instructions Recorded Confirmed Type duloxetine 30 mg PO DAILY 03/12/18 04/01/18 History linaclotide [Linzess] 145 mcg PO DAILY PRN 03/12/18 04/01/18 History insulin lispro [Humalog U-100 0 unit SUBCUT BID 04/01/18 04/02/18 History Insulin] lisinopril 10 mg PO DAILY 04/01/18 04/01/18 History metformin [Glucophage] 850 mg PO BIDPC 04/01/18 04/01/18 History spironolactone [Aldactone] 25 mg PO DAILY 04/01/18 04/01/18 History Physical Exam Vital signs: Vital Signs 04/02/18 16:00 04/02/18 20:00 04/03/18 00:00 Temperature 96.1 F L 97.8 F 98.1 F Pulse Rate 90 70 79 Respiratory Rate 20 18 18 Blood Pressure 112/79 100/65 107/71 Pulse Oximetry 99 95 90 L 04/03/18 04:00 04/03/18 08:00 Temperature 97.7 F 97.7 F Pulse Rate 92 H 63 Respiratory Rate 18 21 Blood Pressure 107/78 101/66 Pulse Oximetry 97 98 Intake & Output 04/02/18 04/03/18 04/03/18 18:59 06:59 18:59 Intake Total 610 / 610 240 / 240 1005 / 1005 Output Total 1360 / 1360 1200 / 1200 200 / 200 Balance -750 / -750 -960 / -960 805 / 805 Weight 66.6 kg Intake: IV 1005 / 1005 KCl Inj 10 MEQ In NS Inj 1,000 1005 / 1005 ML @ 60 mls/hr IV.CONT .[id number] [facility] Rx#:[id number] Oral 610 / 610 240 / 240 0 / 0 Output: Urine 1360 / 1360 1200 / 1200 200 / 200 Other: # Voids 1 # Emeses 1 - Constitutional no acute distress - Routine HEENT Exam Head: Present: normocephalic Eye: Present: EOMI ENT: Present: mucous membranes moist - Routine Neck Exam Present: supple - Routine Respiratory Exam Absent: accessory muscle use - Routine Cardiovascular Exam Present: RRR. Absent: murmur - Routine Abdominal Exam Present: soft Results 04/03/18 06:04 04/03/18 06:04 Cardiac Enzymes 04/02/18 04/02/18 04/02/18 Range/Units 03:00 05:00 05:00 AST (15-37) U/L Troponin I 0.33 H 0.37 H (0.02-0.05) ng/mL B-Natriuretic Peptide 854 H (0-100) pg/mL 04/03/18 04/03/18 Range/Units 06:04 06:04 AST 23 (15-37) U/L Troponin I (0.02-0.05) ng/mL B-Natriuretic Peptide 400 H (0-100) pg/mL Coagulation 04/02/18 04/03/18 Range/Units 05:00 06:04 B-Natriuretic Peptide 854 H 400 H (0-100) pg/mL CBC 04/02/18 04/03/18 Range/Units 05:00 06:04 WBC 7.6 8.2 (4.0-11.0) th/mm3 RBC 5.47 5.13 (4.50-5.90) mil/mm3 Hgb 17.0 16.2 (13.0-17.0) gm/dL Hct 51.2 H 47.2 (39.0-51.0) % Plt Count 117 L 113 L (150-450) th/mm3 Neut # (Auto) 4.8 6.2 (1.8-7.7) th/mm3 Lymph # (Auto) 1.7 1.2 (1.0-4.8) th/mm3 [place] # (Auto) 0.8 0.6 (0.0-0.9) th/mm3 Eos # (Auto) 0.2 0.2 (0.0-0.4) th/mm3 Baso # (Auto) 0.1 0.0 (0.0-0.2) th/mm3 Comprehensive Metabolic Panel 04/02/18 04/03/18 Range/Units 05:00 06:04 Sodium 136 136 (136-145) meq/L Potassium 3.7 4.2 (3.5-5.1) meq/L Chloride 102 101 (98-107) meq/L Carbon Dioxide 26.6 25.9 (21.0-32.0) meq/L BUN 20 H 25 H (7-18) mg/dL Creatinine 0.67 0.74 (0.60-1.30) mg/dL Calcium 8.7 8.7 (8.5-10.1) mg/dL Direct Bilirubin 0.4 H (0.0-0.2) mg/dL Indirect Bilirubin 1.2 H (0.0-0.8) mg/dL AST 23 (15-37) U/L ALT 36 (12-78) U/L Alkaline Phosphatase 77 (45-117) U/L Total Protein 6.8 D (6.4-8.2) g/dL Albumin 2.8 L (3.4-5.0) g/dL Intake and Output 04/02/18 04/03/18 04/03/18 22:59 06:59 14:59 Intake Total 610 / 610 240 / 240 1005 / 1005 Output Total 1360 / 1360 1200 / 1200 200 / 200 Balance -750 / -750 -960 / -960 805 / 805 Intake: IV 1005 / 1005 KCl Inj 10 MEQ In NS Inj 1,000 1005 / 1005 ML @ 60 mls/hr IV.CONT .[id number] [facility] Rx#:[id number] Oral 610 / 610 240 / 240 0 / 0 Output: Urine 1360 / 1360 1200 / 1200 200 / 200 Other: # Voids 1 # Emeses 1 Weight 66.6 kg - Imaging and Cardiology Imaging: Impressions Abdomen X-Ray 04/01/18 00:00 CONCLUSION: No acute abnormality. Abdomen CT 04/02/18 00:00 CONCLUSION: 1. The pancreas is unremarkable in appearance 2. Status post cholecystectomy. Myocardial Perfusion Scan Nuc Med 04/03/18 00:00 CONCLUSION: 1. Dilated left ventricle with mild fixed decreased perfusion in the anterior wall near the left ventricle apex. However, no definite reversible perfusion defect is identified. 2. Global hypokinesia with significantly reduced left ventricle ejection fraction calculated at 21%. Assessment and Plan - Plan 1. Cardiomyopathy ;on melany/bb, life-vest in place 2. chest pain, resolve, likely chronic pancreatitis, no ischemia on nuc stress Ok to d/c home from cardiac standpoint when cleared by medical team, he will f/ u with Dr. Faustin as an outpt.
--- NOTE | 2018-04-03 17:16 | P.PNIM ---
Subjective Interval history: Patient says his pain is improving. Would like to eat. Physical Exam Vital signs: Vital Signs 04/02/18 20:00 04/03/18 00:00 04/03/18 04:00 Temperature 97.8 F 98.1 F 97.7 F Pulse Rate 70 79 92 H Respiratory Rate 18 18 18 Blood Pressure 100/65 107/71 107/78 Pulse Oximetry 95 90 L 97 04/03/18 08:00 04/03/18 12:00 04/03/18 14:31 Temperature 97.7 F 96.9 F L Pulse Rate 63 78 Respiratory Rate 21 21 16 Blood Pressure 101/66 114/71 Pulse Oximetry 98 99 04/03/18 16:00 Temperature 97.5 F L Pulse Rate 70 Respiratory Rate 21 Blood Pressure 118/65 Pulse Oximetry 97 Intake & Output 04/02/18 04/03/18 04/03/18 18:59 06:59 18:59 Intake Total 610 / 610 240 / 240 1005 / 1005 Output Total 1360 / 1360 1200 / 1200 400 / 400 Balance -750 / -750 -960 / -960 605 / 605 Weight 66.6 kg Intake: IV 1005 / 1005 KCl Inj 10 MEQ In NS Inj 1,000 1005 / 1005 ML @ 60 mls/hr IV.CONT .[id number] [facility] Rx#:[id number] Oral 610 / 610 240 / 240 0 / 0 Output: Urine 1360 / 1360 1200 / 1200 400 / 400 Other: # Voids 1 # Emeses 1 Narrative: GENERAL: Patient lying in bed. Appears comfortable. SKIN: Warm and dry. HEAD: Normocephalic. EYES: No scleral icterus. No injection or drainage. NECK: Supple, trachea midline. No JVD. CARDIOVASCULAR: Regular rate and rhythm without murmurs, gallops, or rubs. RESPIRATORY: Breath sounds equal bilaterally. No accessory muscle use. GASTROINTESTINAL: Abdomen soft, non-tender, nondistended. MUSCULOSKELETAL: No cyanosis, or edema. BACK: Nontender without obvious deformity. No CVA tenderness. Results - Labs CBC & Chem 7: 04/03/18 06:04 04/03/18 06:04 Laboratory Results - last 24 hr 04/02/18 04/02/18 04/02/18 17:06 18:25 18:55 CBC w Diff WBC RBC Hgb Hct MCV MCH MCHC RDW Plt Count MPV Neut % (Auto) Lymph % (Auto) [place] % (Auto) Eos % (Auto) Baso % (Auto) Neut # (Auto) Lymph # (Auto) [place] # (Auto) Eos # (Auto) Baso # (Auto) WBC Differential Differential Comment Sodium Potassium Chloride Carbon Dioxide Anion Gap BUN Creatinine Estimated GFR POC Glucose 295 H 248 H Random Glucose Calcium Phosphorus Magnesium Total Bilirubin Direct Bilirubin Indirect Bilirubin AST ALT Alkaline Phosphatase B-Natriuretic Peptide Total Protein Albumin Urine Opiates Screen Neg Ur Barbiturates Screen Neg Ur Amphetamines Screen Neg U Benzodiazepines Scrn Neg Urine Cocaine Screen Neg U Cannabinoids Screen Neg 04/02/18 04/03/18 04/03/18 20:38 06:04 06:04 CBC w Diff Auto diff final WBC 8.2 RBC 5.13 Hgb 16.2 Hct 47.2 MCV 92.0 MCH 31.6 MCHC 34.4 RDW 12.6 Plt Count 113 L MPV 9.3 Neut % (Auto) 75.5 H Lymph % (Auto) 14.7 [place] % (Auto) 7.7 Eos % (Auto) 1.9 Baso % (Auto) 0.2 Neut # (Auto) 6.2 Lymph # (Auto) 1.2 [place] # (Auto) 0.6 Eos # (Auto) 0.2 Baso # (Auto) 0.0 WBC Differential . Differential Comment . Sodium Potassium Chloride Carbon Dioxide Anion Gap BUN Creatinine Estimated GFR POC Glucose 183 H Random Glucose Calcium Phosphorus Magnesium Total Bilirubin Direct Bilirubin Indirect Bilirubin AST ALT Alkaline Phosphatase B-Natriuretic Peptide 400 H Total Protein Albumin Urine Opiates Screen Ur Barbiturates Screen Ur Amphetamines Screen U Benzodiazepines Scrn Urine Cocaine Screen U Cannabinoids Screen 04/03/18 04/03/18 04/03/18 06:04 08:12 11:56 CBC w Diff WBC RBC Hgb Hct MCV MCH MCHC RDW Plt Count MPV Neut % (Auto) Lymph % (Auto) [place] % (Auto) Eos % (Auto) Baso % (Auto) Neut # (Auto) Lymph # (Auto) [place] # (Auto) Eos # (Auto) Baso # (Auto) WBC Differential Differential Comment Sodium 136 Potassium 4.2 Chloride 101 Carbon Dioxide 25.9 Anion Gap 9 BUN 25 H Creatinine 0.74 Estimated GFR Greater than 89 POC Glucose 151 H 142 H Random Glucose 187 H Calcium 8.7 Phosphorus 3.4 Magnesium 1.7 Total Bilirubin 1.6 H Direct Bilirubin 0.4 H Indirect Bilirubin 1.2 H AST 23 ALT 36 Alkaline Phosphatase 77 B-Natriuretic Peptide Total Protein 6.8 D Albumin 2.8 L Urine Opiates Screen Ur Barbiturates Screen Ur Amphetamines Screen U Benzodiazepines Scrn Urine Cocaine Screen U Cannabinoids Screen 04/03/18 15:44 CBC w Diff WBC RBC Hgb Hct MCV MCH MCHC RDW Plt Count MPV Neut % (Auto) Lymph % (Auto) [place] % (Auto) Eos % (Auto) Baso % (Auto) Neut # (Auto) Lymph # (Auto) [place] # (Auto) Eos # (Auto) Baso # (Auto) WBC Differential Differential Comment Sodium Potassium Chloride Carbon Dioxide Anion Gap BUN Creatinine Estimated GFR POC Glucose 130 H Random Glucose Calcium Phosphorus Magnesium Total Bilirubin Direct Bilirubin Indirect Bilirubin AST ALT Alkaline Phosphatase B-Natriuretic Peptide Total Protein Albumin Urine Opiates Screen Ur Barbiturates Screen Ur Amphetamines Screen U Benzodiazepines Scrn Urine Cocaine Screen U Cannabinoids Screen - Imaging Impressions Abdomen CT 04/02/18 00:00 CONCLUSION: 1. The pancreas is unremarkable in appearance 2. Status post cholecystectomy. Myocardial Perfusion Scan Nuc Med 04/03/18 00:00 CONCLUSION: 1. Dilated left ventricle with mild fixed decreased perfusion in the anterior wall near the left ventricle apex. However, no definite reversible perfusion defect is identified. 2. Global hypokinesia with significantly reduced left ventricle ejection fraction calculated at 21%. Assessment and Plan - Plan //Acute atypical chest pain //Troponin elevation -EKG with no acute findings. Troponin elevation to 0.3 consistent with previous admission. -Due to patient not obtaining Effient until 4 days after discharge, there is possibility of in-stent thrombosis. -Continue home medications. -EKG reviewed. Consult cardiology. Plan for stress test. Appreciate cardiology assistance. = Stress test negative. Cleared by cardiology for discharge. //Acute abdominal pain. /Suspected recurrent pancreatitis Lipase not elevated, however pancreatitis reported to be recurrent. Will request old records from [place] -Patient requesting Dilaudid. Reports previous history of recurrent pancreatitis in [place]. -The possible patient could be pain med seeking, however due to epigastric tenderness on exam, will obtain abdominal CT. -Patient requesting start Creon 3 times daily. Will plan to start when we start back on diet. -Make n.p.o. Difficult situation with fluids. BNP is elevated in the 800s, will put on low-dose IV fluids and continue home cardiac meds. = Patient without epigastric tenderness today. Will restart diet. Hopefully discharge tomorrow if tolerating diet. //Chronic diabetes. Glucose is elevated to 200. Patient will be n.p.o. Start Levemir. Insulin sliding scale //Depression. no SI. Continue home medication. Discussed Condition With: Patient, nurse, case monitor. Discharge Planning: Discharge home tomorrow.
[2018-04-04] MEDS: HYDROmorphone PF Inj 1 MG/ML Ampul IV.PUSH PRN ×3 (00:47→06:28)
[2018-04-04 02:07] VITALS: O2SAT 99
[2018-04-04] MEDS: Potassium Chloride Inj 10 MEQ in Sod Chloride 0.9% Inj 1,000 ML IV.CONT SCH (03:39)
[2018-04-04 06:26] LABS: Chloride 101 meq/L (98-107); Potassium 4.6 meq/L (3.5-5.1); Sodium 138 meq/L (136-145)
[2018-04-04 06:32] LABS: Albumin 2.9 g/dL (3.4-5.0); Anion Gap 5 meq/L (5-15); Blood Urea Nitrogen 29 mg/dL (7-18); Calcium 8.5 mg/dL (8.5-10.1); Carbon Dioxide 31.9 meq/L (21.0-32.0); Glucose,Random 104 mg/dL (74-106); Magnesium 1.9 mg/dL (1.5-2.5)
[2018-04-04 06:35] LABS: Alanine Aminotransferase 46 U/L (12-78)
[2018-04-04 07:04] LABS: Alkaline Phosphatase 91 U/L (45-117); Aspartate Aminotransferase 45 U/L (15-37); Glomerular Filtration Rate Greater Than 89 mL/min (>89); Phosphorus 3.3 mg/dL (2.5-4.9); Total Protein 7.2 g/dL (6.4-8.2)
[2018-04-04] MEDS: Insulin NovoLOG Aspart Correctional Sugar Inj SQ SCH (08:19)
[2018-04-04] MEDS: Lipase/Protease/Amylase 24/76/120 DR Capsule PO SCH (08:21)
[2018-04-04] MEDS: Lisinopril 10 MG Tablet PO SCH (08:22)
[2018-04-04] MEDS: Furosemide 40 MG Tablet PO SCH (08:22)
[2018-04-04] MEDS: Spironolactone 25 MG Tablet PO SCH (08:22)
[2018-04-04] MEDS: Carvedilol 12.5 MG Tablet PO SCH (08:23)
[2018-04-04] MEDS: Insulin Detemir Inj 1,000 UNIT/10 ML Vial SQ SCH (08:23)
--- NOTE | 2018-04-04 09:18 | P.PNIM ---
Subjective Interval history: Patient says he is feeling much better. Like to go home. Denies any nausea or vomiting. Denies any abdominal pain. Physical Exam Vital signs: Vital Signs 04/03/18 12:00 04/03/18 14:31 04/03/18 16:00 Temperature 96.9 F L 97.5 F L Pulse Rate 78 70 Respiratory Rate 21 16 21 Blood Pressure 114/71 118/65 Pulse Oximetry 99 97 04/03/18 20:00 04/04/18 00:00 04/04/18 04:00 Temperature 96.2 F L Pulse Rate 88 88 88 Respiratory Rate 20 20 Blood Pressure 105/67 127/77 Pulse Oximetry 99 99 Intake & Output 04/03/18 04/04/18 04/04/18 18:59 06:59 18:59 Intake Total 1485 / 1485 Output Total 800 / 800 Balance 685 / 685 Weight 66.9 kg Intake: IV 1005 / 1005 KCl Inj 10 MEQ In NS Inj 1,000 1005 / 1005 ML @ 60 mls/hr IV.CONT .[id number] [facility] Rx#:[id number] Oral 480 / 480 Output: Urine 800 / 800 Other: Date of Last Bowel Movement 04/03/18 04/03/18 Narrative: GENERAL: Patient lying in bed. Appears comfortable. And oriented x4. SKIN: Warm and dry. HEAD: Normocephalic. EYES: No scleral icterus. No injection or drainage. NECK: Supple, trachea midline. No JVD. CARDIOVASCULAR: Regular rate and rhythm without murmurs, gallops, or rubs. RESPIRATORY: Breath sounds equal bilaterally. No accessory muscle use. GASTROINTESTINAL: Abdomen soft, non-tender, nondistended. MUSCULOSKELETAL: No cyanosis, or edema. BACK: Nontender without obvious deformity. No CVA tenderness. Results - Labs CBC & Chem 7: 04/03/18 06:04 04/04/18 05:30 Laboratory Results - last 24 hr 04/03/18 04/03/18 04/03/18 11:56 15:44 21:36 Sodium Potassium Chloride Carbon Dioxide Anion Gap BUN Creatinine Estimated GFR POC Glucose 142 H 130 H 301 H Random Glucose Calcium Phosphorus Magnesium Total Bilirubin Direct Bilirubin Indirect Bilirubin AST ALT Alkaline Phosphatase Total Protein Albumin 04/04/18 04/04/18 05:30 07:09 Sodium 138 Potassium 4.6 Chloride 101 Carbon Dioxide 31.9 Anion Gap 5 BUN 29 H Creatinine 0.82 Estimated GFR Greater than 89 POC Glucose 120 H Random Glucose 104 Calcium 8.5 Phosphorus 3.3 Magnesium 1.9 Total Bilirubin 1.5 H Direct Bilirubin 0.5 H Indirect Bilirubin 1.0 H AST 45 H ALT 46 Alkaline Phosphatase 91 Total Protein 7.2 Albumin 2.9 L - Imaging Impressions Myocardial Perfusion Scan Nuc [facility] 04/03/18 00:00 CONCLUSION: 1. Dilated left ventricle with mild fixed decreased perfusion in the anterior wall near the left ventricle apex. However, no definite reversible perfusion defect is identified. 2. Global hypokinesia with significantly reduced left ventricle ejection fraction calculated at 21%. Assessment and Plan - Plan //Acute atypical chest pain //Troponin elevation -EKG with no acute findings. Troponin elevation to 0.3 consistent with previous admission. -Due to patient not obtaining Effient until 4 days after discharge, there is possibility of in-stent thrombosis. -Continue home medications. -EKG reviewed. Consult cardiology. Plan for stress test. Appreciate cardiology assistance. = Stress test negative. Cleared by cardiology for discharge. Continue home medications. //Acute abdominal pain. /Suspected recurrent pancreatitis Lipase not elevated, however pancreatitis reported to be recurrent. Will request old records from [place] -Patient requesting Dilaudid. Reports previous history of recurrent pancreatitis in [place]. -The possible patient could be pain med seeking, however due to epigastric tenderness on exam, will obtain abdominal CT. -Patient requesting start Creon 3 times daily. Will plan to start when we start back on diet. -Make n.p.o. Difficult situation with fluids. BNP is elevated in the 800s, will put on low-dose IV fluids and continue home cardiac meds. = Patient without epigastric tenderness today. Will restart diet. Hopefully discharge tomorrow if tolerating diet. = 1/. Patient feeling well. Discharge home today. We will add Creon which patient says he is supposed to be taking. Referral for refrigerator crater. Advised patient he will need to see her primary care doctor within the next week. //Chronic diabetes. Glucose is elevated to 200. Patient will be n.p.o. Start Levemir. Insulin sliding scale = Discharge home on home medication regimen. //Depression. no SI. Continue home medication. Discharge Planning: Discharge home.
--- NOTE | 2018-04-04 09:19 | P.DS ---
Date of admission: 04/01/18 22:49 Primary care physician: No Primary Care Physician Brief History from admission: 52-year-old male with a history of diabetes mellitus, recurrent pancreatitis coronary artery disease status post catheterization with stenting to the PDA 2 weeks ago, severe cardiomyopathy with ejection fraction of less than 20% on LifeVest who presents with a 10-day history of constant sharp epigastric pain rating to the back, as well as a different dull left sided chest pain which is nonradiating. He reports nausea and nonbloody vomiting. Denies any fevers or chills. He says this episode feels like recurrent pancreatitis. Patient says he had some difficulty picking up his medications after discharge from the hospital 2 weeks ago and did not start his anticoagulation until 4 days after discharge. DS: Medications - Discharge Medications Prescriptions: weymbv-trkavost-[id number] [Creon] 2 cap PO TID 30 Days #180 cap pantoprazole 40 mg PO DAILY 30 Days #30 tab DS: Summary Hospital Course: Cardiology was consulted for patient's chest pain. EKG with no acute endings. Patient underwent myocardial perfusion scan without any ischemia. Patient cleared by cardiology for discharge. Patient was treated while inpatient for recurrent pancreatitis, imaging negative, and lipase within normal limits however.. Patient started on Creon as he says he is supposed to be on this medication For problem-based summary from most recent progress note, please see below. //Acute atypical chest pain //Troponin elevation -EKG with no acute findings. Troponin elevation to 0.3 consistent with previous admission. -Due to patient not obtaining Effient until 4 days after discharge, there is possibility of in-stent thrombosis. -Continue home medications. -EKG reviewed. Consult cardiology. Plan for stress test. Appreciate cardiology assistance. = Stress test negative. Cleared by cardiology for discharge. Continue home medications. //Acute abdominal pain. /Suspected recurrent pancreatitis Lipase not elevated, however pancreatitis reported to be recurrent. Will request old records from [place] -Patient requesting Dilaudid. Reports previous history of recurrent pancreatitis in [place]. -The possible patient could be pain med seeking, however due to epigastric tenderness on exam, will obtain abdominal CT. -Patient requesting start Creon 3 times daily. Will plan to start when we start back on diet. -Make n.p.o. Difficult situation with fluids. BNP is elevated in the 800s, will put on low-dose IV fluids and continue home cardiac meds. = Patient without epigastric tenderness today. Will restart diet. Hopefully discharge tomorrow if tolerating diet. = 04/04. Patient feeling well. Discharge home today. We will add Creon which patient says he is supposed to be taking. Referral for cra. Advised patient he will need to see her primary care doctor within the next week. //Chronic diabetes. Glucose is elevated to 200. Patient will be n.p.o. Start Levemir. Insulin sliding scale = Discharge home on home medication regimen. //Depression. no SI. Continue home medication. Discharge Planning: Discharge home. - Time Spent with Patient Total time spent providing and/or coordinating discharge services: Greater than 30 minutes - Quality: VTE Deep Vein Thrombosis/Pulmonary Embolism Present on Admission: No Exam Vital signs: Vital Signs 04/03/18 12:00 04/03/18 14:31 04/03/18 16:00 Temperature 96.9 F L 97.5 F L Pulse Rate 78 70 Respiratory Rate 21 16 21 Blood Pressure 114/71 118/65 Pulse Oximetry 99 97 04/03/18 20:00 04/04/18 00:00 04/04/18 04:00 Temperature 96.2 F L Pulse Rate 88 88 88 Respiratory Rate 20 20 Blood Pressure 105/67 127/77 Pulse Oximetry 99 99 Intake & Output 04/03/18 04/04/18 04/04/18 18:59 06:59 18:59 Intake Total 1485 / 1485 Output Total 800 / 800 Balance 685 / 685 Weight 66.9 kg Intake: IV 1005 / 1005 KCl Inj 10 MEQ In NS Inj 1,000 1005 / 1005 ML @ 60 mls/hr IV.CONT .[id number] [facility] Rx#:[id number] Oral 480 / 480 Output: Urine 800 / 800 Other: Date of Last Bowel Movement 04/03/18 04/03/18 Results Procedures completed during hospitalization: no invasive procedures Labs on day of discharge: Labs from last 24 hours 04/04/18 04/04/18 04/03/18 07:09 05:30 21:36 Sodium 138 Potassium 4.6 Chloride 101 Carbon Dioxide 31.9 Anion Gap 5 BUN 29 H Creatinine 0.82 Estimated GFR Greater than 89 POC Glucose 120 H 301 H Random Glucose 104 Calcium 8.5 Phosphorus 3.3 Magnesium 1.9 Total Bilirubin 1.5 H Direct Bilirubin 0.5 H Indirect Bilirubin 1.0 H AST 45 H ALT 46 Alkaline Phosphatase 91 Total Protein 7.2 Albumin 2.9 L 04/03/18 04/03/18 15:44 11:56 Sodium Potassium Chloride Carbon Dioxide Anion Gap BUN Creatinine Estimated GFR POC Glucose 130 H 142 H Random Glucose Calcium Phosphorus Magnesium Total Bilirubin Direct Bilirubin Indirect Bilirubin AST ALT Alkaline Phosphatase Total Protein Albumin - Impressions ITS Impressions Abdomen X-Ray 04/01/18 00:00 CONCLUSION: No acute abnormality. Abdomen CT 04/02/18 00:00 CONCLUSION: 1. The pancreas is unremarkable in appearance 2. Status post cholecystectomy. Myocardial Perfusion Scan Nuc Med 04/03/18 00:00 CONCLUSION: 1. Dilated left ventricle with mild fixed decreased perfusion in the anterior wall near the left ventricle apex. However, no definite reversible perfusion defect is identified. 2. Global hypokinesia with significantly reduced left ventricle ejection fraction calculated at 21%. Discharge Plan - Discharge Disposition Patient Disposition: Discharge Home - Discharge Condition Condition: Good - Discharge Order Discharge Orders: Discharge Order (Routine); Ordered 04/04/18 Ordered By: Shaheen Tran - Discharge Details Anticipated Discharge Date: 04/04/18 - Physicians Team Primary Care Provider: Primary Care Physici,No Attending Provider: Shaheen Tran Other Providers: Amilcar Carl MD ; Domains Income,Insurance - Rxs /Orders / Referrals /Forms Prescriptions: New kntjot-cnyhvrwp-xzbihvg [Creon] 24,000-76,000 -120,000 unit Capsule,Delayed Release(Dr/Ec) 2 cap PO TID 30 Days Qty: 180 RF: 0 pantoprazole 40 mg Tablet,Delayed Release (Dr/Ec) 40 mg PO DAILY 30 Days Qty: 30 RF: 0 Continue aspirin 81 mg Tablet,Chewable 81 mg PO DAILY Qty: 30 RF: 0 carvedilol [Coreg] 12.5 mg Tablet 12.5 mg PO BID Qty: 60 RF: 0 duloxetine 30 mg Capsule,Delayed Release(Dr/Ec) 30 mg PO DAILY furosemide 40 mg Tablet 40 mg PO BID@0900,1800 30 Days RF: 0 insulin lispro [Humalog U-100 Insulin] 100 unit/mL Solution 0 unit SUBCUT BID linaclotide [Linzess] 145 mcg Capsule 145 mcg PO DAILY PRN (Reason: Constipation) lisinopril 2.5 mg tablet 10 mg PO DAILY metformin [Glucophage] 850 mg tablet 850 mg PO BIDPC potassium chloride 20 mEq Tablet,Er Particles/Crystals 20 meq PO BID 30 Days Qty: 60 RF: 0 spironolactone [Aldactone] 25 mg tablet 25 mg PO DAILY Referrals: [employer] [employer] [Outside] - See Instructions Amilcar Carl MD [Physician] - See Instructions Primary Care Sarahy King [Primary Care Provider] - See Instructions - Discharge Instructions Patient Printed Instructions: Pancrelipase (By mouth), Heart Failure (DC), Chest Pain (DC), Chest Pain (GEN)
[2018-04-04 09:55] VITALS: BP 115/80; PULSE 83; RESP 19; TEMP 96.8
== END 2018-04-04 10:06 | disposition home or self-care (01) ==
LOC: PHEDDLT 22:00 → INTOOBSV 22:05 → PH3 22:05
PROVIDERS: ADMIT Internal Medicine; ATTEND Internal Medicine
DX: I25.10 Atherosclerotic heart disease of native coronary artery without angina pectoris; I11.0 Hypertensive heart disease with heart failure; Z90.49 Acquired absence of other specified parts of digestive tract; K86.1 Other chronic pancreatitis; R94.31 Abnormal electrocardiogram [ECG] [EKG]; I50.9 Heart failure, unspecified; Z82.49 Family history of ischemic heart disease and other diseases of the circulatory system; Z79.4 Long term (current) use of insulin; I42.9 Cardiomyopathy, unspecified; Z95.5 Presence of coronary angioplasty implant and graft; R07.9 Chest pain, unspecified; Z98.1 Arthrodesis status; F32.9 Major depressive disorder, single episode, unspecified; F17.210 Nicotine dependence, cigarettes, uncomplicated; E11.9 Type 2 diabetes mellitus without complications
CPT/HCPCS: 71010; 71045; 74000; 74018; 74160; 78452; 80048; 80053; 80069; 80076; 80307; 81001; 82550; 82948; 82962; 83520; 83690; 83735; 83880; 84484; 85025; 85379; 85610; 85730; 90772; 90774; 90775; 90782; 90784; 93005; 93017; 96365; 96366; 96372; 96374; 96375; 96376; 99285; A9502; C8952; G0378; J1170; J1815; J1940; J2270; J2405; J2550; J2785; J3480; J7030; Q9963; Q9967